=== PATIENT | male | born 1965 | race Two or more races ===

== ENCOUNTER 2020-06-07 15:24 | Emergency (ER) | payer OTHER, SELFPAY ==
--- NOTE | ~2020-06-07 | XR_ITS ---
EXAMINATION: XR CHEST CLINICAL INFORMATION: SOB COMPARISON: Chest 11/09/2019 TECHNIQUE: Frontal view of the chest was obtained. FINDINGS: The lungs are well-expanded and clear. The heart size and pulmonary vascularity is normal. No gross bony abnormality seen. XR/XR chest 1V IMPRESSION: Unremarkable chest examination.
--- NOTE | ~2020-06-07 | CT_ITS ---
EXAMINATION: CT ANGIOGRAM OF THE CHEST WITH AND WITHOUT CONTRAST (CT PULMONARY ANGIOGRAM FOR PE) CLINICAL INFORMATION: Reason for Exam covid + elevated d-dimer COMPARISON: None TECHNIQUE: Prior to contrast administration, noncontrast localization images were obtained. Subsequently, multidetector volumetric imaging was performed from the thoracic inlet to below the diaphragms following the administration of 80 mL Omnipaque 350 intravenous contrast. No contrast reaction reported Sagittal, coronal, and MIP oblique sagittal reformatted images were obtained on the CT workstation, uploaded to PACS, and reviewed. This CT examination was performed using dose optimization techniques as appropriate, variously including the following: *Automated exposure control *Adjustment of mA and/or kV according to patient size (this includes techniques or standardized protocols for targeted exams where dose is matched to indication/reason for exam; i.e. extremities or head) *Use of iterative reconstruction technique Total exam dose-length product 322 mGy-cm FINDINGS: QUALITY OF STUDY/CONTRAST BOLUS: Satisfactory. PULMONARY ARTERIES: No central or segmental pulmonary emboli. THORACIC AORTA: No aneurysm or dissection. LUNG: The lungs are well-expanded with patchy groundglass opacities seen throughout both lungs especially in right upper lobe, right middle lobe and both lower lobes suspicious for infiltrates. PLEURA: No pleural effusion or pneumothorax. MEDIASTINUM: Normal heart size. No pericardial effusion. No hilar or mediastinal lymphadenopathy. No evidence of septal bowing or right heart strain. CHEST WALL/AXILLA: No axillary or internal mammary lymphadenopathy. OSSEOUS STRUCTURES: No acute or suspicious osseous abnormality. UPPER ABDOMEN: Visualized liver and spleen appears unremarkable. No reflux of contrast into the hepatic veins to suggest elevated right heart pressures. CT/CT angio chest PE protocol IMPRESSION: No evidence of PE. No evidence aortic aneurysm. Scattered patchy groundglass opacities throughout both lungs suspicious for infiltrate likely COVID related. VTE: negative
[2020-06-07 15:32] VITALS: BP 144/59; PULSE 109; RESP 17; TEMP 36.9; O2SAT 98; BMI 29.9
--- NOTE | 2020-06-07 17:55 | ECG_ITS ---
Test Reason : COUGH Blood Pressure : / mmHG Vent. Rate : 102 BPM Atrial Rate : 102 BPM P-R Int : 156 ms QRS Dur : 084 ms QT Int : 316 ms P-R-T Axes : 038 057 068 degrees QTc Int : 411 ms Sinus tachycardia Minimal voltage criteria for LVH, may be normal variant Borderline ECG No previous ECGs available Referred By: Elaina Hsu Electronically Signed By:KERRY VELARDE MD
[2020-06-07 17:56] VITALS: BP 166/86; PULSE 100; RESP 20; TEMP 37.1; O2SAT 98
--- NOTE | 2020-06-07 18:18 | ED.SOB ---
HPI - SOB/Dyspnea General Chief Complaint: Dyspnea Stated Complaint: COVID + Time Seen by Provider: 06/07/20 17:20 Source: patient Mode of arrival: ambulatory History of Present Illness HPI Narrative: 54-year-old male With a past medical history of HTN, COVID-19 positive x 1 week, presenting to the ED complaining of worsening SOB, elevated heart rate, chest tightness/discomfort, generalized fatigue/weakness, decreased p.o. intake since COVID-19 diagnosis. Denies fever, chills, recent travel, LE edema, calf tenderness, abdominal pain, nausea/vomiting MD elicited complaint: shortness of breath and chest pain Related Data Previous Rx's Medication Instructions Recorded azithromycin See Rx Instructions .ROUTE 06/07/20 .COMPLEX #6 tab benzonatate [Tessalon Perles] 100 mg PO TID PRN #14 cap 06/07/20 Allergies Allergy/AdvReac Type Severity Reaction Status Date / Time No Known Allergies Allergy Unverified 11/24/19 18:24 [No Known Allergies*] Review of Systems Review of Systems: Constitutional: No Fever, No Chills, + Fatigue, + Malaise Cardiovascular: + Chest Pain, + SOB, + Dyspnea on Exertion, No Orthopnea, No Edema Respiratory: + Cough, No Sputum, No Wheezing Gastrointestinal: No Nausea, No Vomiting, No Diarrhea, No Constipation, No Abdominal pain Musculoskeletal: No joint pain, No Myalgias, No Joint Swelling Skin: No Skin Lesions, No rash Neuro: + Weakness, No Numbness, No Headache Yes all other systems are reviewed and are negative [facility] Past Medical History Attestation statement: The following information was validated with the patient. Medical History (Updated 06/07/20 @ 21:45 by ANGEL Kelsey) COVID-19 Hypertension Social History Social History Smoking Status: Never smoker Use of substances other than those prescribed or required for medical reasons: No Advance Directives: No Advance Directives Information Provided: Yes Physical Exam Vital Signs: Vital Signs: Last Vital Signs Temp 98.4 F 06/07/20 23:34 Pulse 112 H 06/07/20 23:34 Resp 20 06/07/20 23:34 BP 118/69 06/07/20 23:34 Pulse Ox 96 06/07/20 23:34 Body Mass Index 29.9 Const: General: cooperative and healthy appearing Orientation/consciousness: patient oriented x3 Limitations: no limitations HENMT: Head: Yes normal to inspection Ears: hearing grossly normal bilaterally General nose exam: Normal external nose present Face and sinus: Yes normal facial exam Eyes: General: appearance normal, both eyes and all related structures EOM: EOMs intact bilaterally Neck: Neck: Yes normal visual inspection Resp: Effort & Inspection: normal respiratory effort Auscultation: clear to auscultation bilaterally, no rales, no rhonchi and no wheezes Cardio: Rate: regular rate Heart sounds: S1 normal heart sound present and S2 normal heart sound present GI: Inspection: Yes normal to inspection Palpation (GI): Soft to palpation and nontender Skin: Rashes: no rashes Wounds: no wounds Neuro: General: patient oriented x3 Gait exam (Neuro): Normal gait present Extrem: General: Yes normal to inspection, Yes no pedal edema and Yes no calf tenderness Course Course Course Narrative: -190--leukopenia 4.2, D-dimer elevated to 382 >> will obtain CTA to rule out PE XR chest 1V IMPRESSION: Unremarkable chest examination -initil troponin 6.1 > will obtain 3 hour repeat -2140-- repeat troponin 5.1, RI unlikely CT angio chest PE protocol IMPRESSION: No evidence of PE. No evidence aortic aneurysm. Scattered patchy groundglass opacities throughout both lungs suspicious for infiltrate likely COVID related. VTE: negative >> patient given 1st dose of Azithromycin in the ED. repeat vital signs with increased heart rate/tachypnea > Motrin and IVF ordered. Will reassess and repeat. Patient maintain saturations greater than 97% on RA with exertion -0025-repeat vital signs improved with a heart rate of 112, patient requesting to be discharged. Results discussed with patient with human resources records clerk including worrisome signs and symptoms and strict return precautions. He verbalized understanding feel safe for discharge home MDM - SOB/Dyspnea MDM Narrative Medical decision making narrative: 54-year-old male With a past medical history of HTN, COVID-19 positive x 1 week, presenting to the ED complaining of worsening SOB, elevated heart rate, chest tightness/discomfort, generalized fatigue/weakness, decreased p.o. intake since COVID-19 diagnosis. On exam mildly tachycardic, NAD/nontoxic appearing, lungs CTA, no LE edema or calf tenderness. Concern for COVID-19 symptoms. Rule out PE vs COVID-19 pneumonia. Unlikely severe sepsis as known viral etiology Plan: EKG, labs, CXR, albuterol, reassess Lab Data Result diagrams: 06/07/20 18:28 06/07/20 18:28 Labs: Lab Results 06/07/20 06/07/20 06/07/20 Range/Units 18:28 18:28 18:28 WBC 4.2 L (4.8-10.8) X10*3/uL RBC 5.48 (4.60-5.80) X10*6/uL Hgb 16.1 (14.0-18.0) g/dl Hct 47.1 (42-52) % MCV 85.9 (80-98) fL MCH 29.4 (27.0-33.0) pg MCHC 34.2 (31.0-36.0) g/dl RDW 12.5 (11.0-16.0) % Plt Count 178 (160-400) X10*3/uL MPV 12.6 H (9.4-12.4) fL Immature Gran % (Auto) 0.2 (0.0-0.4) % Neut % (Auto) 65.8 (45-73) % Lymph % (Auto) 24.6 (20-40) % [place] % (Auto) 9.0 (2-11) % Eos % (Auto) 0.2 (0-4) % Baso % (Auto) 0.2 (0-2) % Lymph # (Auto) 1.0 L (1.2-4.9) X10*3/uL [place] # (Auto) 0.4 (0.1-1.2) X10*3/uL Eos # (Auto) 0.0 (0.0-0.4) X10*3/uL Baso # (Auto) 0.0 (0.0-0.2) X10*3/uL Abs Immat Gran (auto) 0.01 (0.00-0.03) X10*3/uL Absolute Neuts (auto) 2.8 (2.0-8.3) X10*3/uL Absolute Nucleated RBC 0.000 (0.0-0.012) X10*3/uL Nucleated RBC % (auto) 0.0 (0.0-0.2) /100WBC PT 12.8 (10.8-13.0) SEC INR 1.1 (0.9-1.1) APTT 33.5 (24.1-38.0) SEC D-Dimer 382 NG/ML Sodium 141 (135-145) mmol/L Potassium 4.0 (3.3-5.1) mmol/L Chloride 101 (96-108) mmol/L Carbon Dioxide 30 H (22-29) mmol/L Anion Gap 14 (12-20) BUN 8 L (9-16) mg/dL Creatinine 0.82 (0.5-1.4) mg/dL Estim Creat Clear Calc 110.5 Estimated GFR > 60 Random Glucose 103 (60-115) mg/dL Calcium 8.7 (8.4-10.2) mg/dL Troponin I High Sens (<3.5-35.0) ng/L B-Natriuretic Peptide (<100) pg/mL 06/07/20 06/07/20 Range/Units 18:28 20:05 WBC (4.8-10.8) X10*3/uL RBC (4.60-5.80) X10*6/uL Hgb (14.0-18.0) g/dl Hct (42-52) % MCV (80-98) fL MCH (27.0-33.0) pg MCHC (31.0-36.0) g/dl RDW (11.0-16.0) % Plt Count (160-400) X10*3/uL MPV (9.4-12.4) fL Immature Gran % (Auto) (0.0-0.4) % Neut % (Auto) (45-73) % Lymph % (Auto) (20-40) % [place] % (Auto) (2-11) % Eos % (Auto) (0-4) % Baso % (Auto) (0-2) % Lymph # (Auto) (1.2-4.9) X10*3/uL [place] # (Auto) (0.1-1.2) X10*3/uL Eos # (Auto) (0.0-0.4) X10*3/uL Baso # (Auto) (0.0-0.2) X10*3/uL Abs Immat Gran (auto) (0.00-0.03) X10*3/uL Absolute Neuts (auto) (2.0-8.3) X10*3/uL Absolute Nucleated RBC (0.0-0.012) X10*3/uL Nucleated RBC % (auto) (0.0-0.2) /100WBC PT (10.8-13.0) SEC INR (0.9-1.1) APTT (24.1-38.0) SEC D-Dimer NG/ML Sodium (135-145) mmol/L Potassium (3.3-5.1) mmol/L Chloride (96-108) mmol/L Carbon Dioxide (22-29) mmol/L Anion Gap (12-20) BUN (9-16) mg/dL Creatinine (0.5-1.4) mg/dL Estim Creat Clear Calc Estimated GFR Random Glucose (60-115) mg/dL Calcium (8.4-10.2) mg/dL Troponin I High Sens 6.1 5.1 (<3.5-35.0) ng/L B-Natriuretic Peptide < 10 (<100) pg/mL Discharge Plan Discharge Clinical Impression: Pneumonia due to COVID-19 virus Patient Disposition: Home, Self-Care Instructions: COVID-19 (Coronavirus Disease 2019) (ED) Additional Instructions: You have COVID pneumonia. A Zithromax in as an antibiotic, take as prescribed. Continue using previously prescribed inhaler at home. Call your doctor for follow-up. Take Tylenol Motrin for body aches/fever. If you develop constant worsening shortness of breath, chest pain, or fever unresolved with medications return to the ED Tiene neumon?a COVID. Un Zithromax carlo antibi?mars, t?saldivar seg?n lo prescrito. Contin?e usando el inhalador previamente recetado en casa. Llame a zhao m?dico para seguimiento. [place] Tylenol Motrin para los ness corporales / fiebre. Si presenta un empeoramiento joanne de la dificultad para respirar, dolor en el pecho o fiebre sin resolver con medicamentos, regrese al servicio de urgencias Prescriptions: New azithromycin 250 mg tablet See Rx Instructions .ROUTE .COMPLEX Qty: 6 RF: 0 benzonatate [Tessalon Perles] 100 mg capsule 100 mg PO TID PRN (Reason: cough) Qty: 14 RF: 0 Referrals: [facility] [Primary Care Provider] - 2 days Print Language: Ivorian
[2020-06-07 18:38] LABS: MANUAL DIFF FLAG NO
[2020-06-07 18:47] LABS: INTERNATIONAL NORM RATIO 1.1 (0.9-1.1); Prothrombin Time 12.8 SEC (10.8-13.0)
[2020-06-07 18:49] LABS: Basophils Percent Auto 0.2 % (0-2); Eosinophils Percent Auto 0.2 % (0-4); Hematocrit 47.1 % (42-52); Hemoglobin 16.1 g/dl (14.0-18.0); Imm Gran Abs Auto 0.01 X10*3/uL (0.00-0.03); Imm Gran Pct Auto 0.2 % (0.0-0.4); Lymphocytes Percent Auto 24.6 % (20-40); Mean Corpuscular HGB Conc 34.2 g/dl (31.0-36.0); Mean Corpuscular Hemoglobin 29.4 pg (27.0-33.0); Mean Corpuscular Volume 85.9 fL (80-98); Mean Platelet Volume 12.6 fL (9.4-12.4); Monocytes Absolute Auto 0.4 X10*3/uL (0.1-1.2); Neutrophils Absolute Auto 2.8 X10*3/uL (2.0-8.3); Neutrophils Percent Auto 65.8 % (45-73); Partial Thromboplastin Time 33.5 SEC (24.1-38.0); Platelet Count 178 X10*3/uL (160-400); Red Blood Count 5.48 X10*6/uL (4.60-5.80); Red Cell Distribution Width 12.5 % (11.0-16.0); White Blood Count 4.2 X10*3/uL (4.8-10.8)
[2020-06-07 18:50] LABS: D Dimer 382 NG/ML
[2020-06-07 19:09] LABS: Anion Gap 14 (12-20); Blood Urea Nitrogen 8 mg/dL (9-16); Calcium 8.7 mg/dL (8.4-10.2); Carbon Dioxide 30 mmol/L (22-29); Chloride 101 mmol/L (96-108); Creatinine Clr Calc Pharmacy 110.5; Estimated Glomerular Filt Rate > 60; Glucose Random 103 mg/dL (60-115); Sodium 141 mmol/L (135-145)
[2020-06-07 19:14] LABS: B Type Natriuretic Peptide < 10 pg/mL (<100); Troponin-I High Sensitivity 6.1 ng/L (<3.5-35.0)
[2020-06-07] MEDS: Albuterol Sulfate 90 MCG 8 GM INHALER 4 PUFF INHALE (19:57)
[2020-06-07 20:20] VITALS: BP 140/93; PULSE 105; RESP 24; TEMP 37.5; O2SAT 98
[2020-06-07 21:05] LABS: Troponin-I High Sensitivity 5.1 ng/L (<3.5-35.0)
[2020-06-07] MEDS: Acetaminophen 325 MG TABLET 650 MG PO (21:30)
[2020-06-07] MEDS: Azithromycin 500 MG TABLET PO (21:58)
[2020-06-07 22:03] VITALS: O2SAT 97
[2020-06-07 22:04] VITALS: BP 142/91; PULSE 130; RESP 28; TEMP 37.9; O2SAT 97
--- NOTE | 2020-06-07 22:06 | PC.NURSE ---
PT REQUESTING SOMETHING TO EAT, BROUGHT HIM SANDWICH AND SODA.
[2020-06-07] MEDS: Ibuprofen 400 MG TABLET PO (22:34)
[2020-06-07] MEDS: 0.9 % Sodium Chloride 1,000 ML 999 ML IVCONT (22:36)
[2020-06-07 23:34] VITALS: BP 118/69; PULSE 112; RESP 20; TEMP 36.9; O2SAT 96
== END 2020-06-08 00:42 | disposition home or self-care (01) ==
PROVIDERS: Physician Assistant; Emergency Provider Internal Medicine
DX: U07.1 COVID-19 (principal); J12.82 Pneumonia due to coronavirus disease 2019; I10 Essential (primary) hypertension
CPT/HCPCS: 36415; 71045; 71275; 80048; 83880; 84484; 85025; 85379; 85610; 85730; 93005; 96360; 99284; Q9967

== ENCOUNTER 2020-06-10 10:10 | Emergency (ER) | payer OTHER, SELFPAY ==
--- NOTE | ~2020-06-10 | XR_ITS ---
EXAMINATION: XR chest 1V CLINICAL INFORMATION: Shortness of breath COMPARISON: 06/07/2020 TECHNIQUE: XR chest 1V Tubes and lines: None Lungs and Sweetie: There are mild patchy interstitial opacities concerning for possible atypical pneumonia including possible viral pneumonia. Pleura: Normal. Costophrenic angles are sharp. No pneumothorax. Heart and mediastinum: The mediastinum is within normal limits.. Bones: Skeletal structures included are normal for patient's age. XR/XR chest 1V IMPRESSION: Mild interstitial groundglass opacities concerning for possible atypical pneumonia including viral pneumonia. Please correlate clinically. No pleural effusion.
[2020-06-10 10:55] VITALS: BP 136/80; PULSE 116; RESP 24; TEMP 36.9; O2SAT 96; BMI 29.6
--- NOTE | 2020-06-10 11:29 | ED.GENADULT ---
HPI - General Adult General Chief complaint: Dyspnea Stated complaint: SOB COVID POS Time Seen by Provider: 06/10/20 10:44 History of Present Illness HPI narrative: This is a 54 years old male presented to the emergency department with chief complaint of shortness of breath malaise weakness. He was seen in the emergency room June 07 he was then used with the COVID pneumonitis discharged home on azithromycin. He returned today because he is feeling weak, malaise poor p.o. intake Onset (ago): day(s) (4) Relieving factors: none Exacerbating factors: none Associated symptoms: denies other symptoms Related Data Previous Rx's Medication Instructions Recorded azithromycin See Rx Instructions .ROUTE 06/07/20 .COMPLEX #6 tab benzonatate [Tessalon Perles] 100 mg PO TID PRN #14 cap 06/07/20 Allergies Allergy/AdvReac Type Severity Reaction Status Date / Time No Known Allergies Allergy Unverified 11/24/19 18:24 [No Known Allergies*] Review of Systems Cardiovascular: Cardiovascular: Denies chest pain, Denies chest pain at rest, Denies chest pain with activity and Denies dyspnea Respiratory: Respiratory: Reports no additional respiratory complaints, Denies pain with cough and Denies dyspnea Gastrointestinal: Gastrointestinal: Denies abdominal pain, Denies belching, Denies melena, Denies bloating and Denies hematochezia Neurologic: Reports system reviewed and no additional complaints, except as documented PMFSH Past Medical History Medical History COVID-19 Hypertension Social History Social History Smoking Status: Never smoker Advance Directives: Yes Advance Directives Information Provided: Yes Advance Directives on File: No Physical Exam Vital Signs: Vital Signs: Last Vital Signs Temp 98.1 F 06/10/20 14:31 Pulse 92 06/10/20 14:58 Resp 18 06/10/20 14:58 BP 144/96 H 06/10/20 14:58 Pulse Ox 97 06/10/20 14:58 Body Mass Index 29.6 Const: Orientation/consciousness: oriented to person, oriented to place and oriented to time HENMT: Head: Yes normal to inspection, Yes No palpable skull fracture present and Yes normocephalic Eyes: General: appearance normal, both eyes and all related structures Neck: Neck: Yes normal visual inspection, Yes full ROM, Yes no lymphadenopathy and Yes no meningeal signs Chest: Chest palpation & inspection: normal inspection of the chest Resp: Effort & Inspection: able to speak in complete sentences Auscultation: clear to auscultation bilaterally GI: Inspection: Yes normal to inspection Palpation (GI): Soft to palpation, nontender and no guarding Skin: General skin exam: no rashes or lesions noted, elasticity normal, turgor normal and atrophy Neuro: General: oriented to person, oriented to place, oriented to time and no meningeal signs Course Course Course Narrative: Patient does have evidence of covid pneumonia by chest x-ray, but is maintaining his oxygen saturation more than 95 -96%, he is able to talk full sentences, he does not drop his O2 sat with ambulation, his initial tachycardia resolved his heart rate is now 96. He is afebrile.The Covid Home Safety (MD CALC ) is 40 points likely suitable for d/c . I discussed with the patient lungs exercise including incentive spirometry/proning position/he does have an O2 sat monitor at home. Patient is very comfortable with the plan and will return if his oxygen is less than 92% or if he is worse /any concern. All questions were answered again is very comfortable with the plan Medical Decision Making Lab Data Result diagrams: 06/10/20 11:32 06/10/20 11:32 Labs: Lab Results 06/10/20 06/10/20 Range/Units 11:32 11:32 WBC 5.9 (4.8-10.8) X10*3/uL RBC 4.93 (4.60-5.80) X10*6/uL Hgb 14.2 (14.0-18.0) g/dl Hct 42.0 (42-52) % MCV 85.2 (80-98) fL MCH 28.8 (27.0-33.0) pg MCHC 33.8 (31.0-36.0) g/dl RDW 12.4 (11.0-16.0) % Plt Count 209 (160-400) X10*3/uL MPV 11.7 (9.4-12.4) fL Immature Gran % (Auto) 0.2 (0.0-0.4) % Neut % (Auto) 77.7 H (45-73) % Lymph % (Auto) 14.6 L (20-40) % [place] % (Auto) 7.3 (2-11) % Eos % (Auto) 0.0 (0-4) % Baso % (Auto) 0.2 (0-2) % Lymph # (Auto) 0.9 L (1.2-4.9) X10*3/uL [place] # (Auto) 0.4 (0.1-1.2) X10*3/uL Eos # (Auto) 0.0 (0.0-0.4) X10*3/uL Baso # (Auto) 0.0 (0.0-0.2) X10*3/uL Abs Immat Gran (auto) 0.01 (0.00-0.03) X10*3/uL Absolute Neuts (auto) 4.6 (2.0-8.3) X10*3/uL Absolute Nucleated RBC 0.000 (0.0-0.012) X10*3/uL Nucleated RBC % (auto) 0.0 (0.0-0.2) /100WBC Sodium 139 (135-145) mmol/L Potassium 4.4 (3.3-5.1) mmol/L Chloride 103 (96-108) mmol/L Carbon Dioxide 26 (22-29) mmol/L Anion Gap 14 (12-20) BUN 12 (9-16) mg/dL Creatinine 0.81 (0.5-1.4) mg/dL Estim Creat Clear Calc 111.3 Estimated GFR > 60 Random Glucose 93 (60-115) mg/dL Calcium 8.4 (8.4-10.2) mg/dL Total Bilirubin 0.3 (0.0-1.0) mg/dL AST 32 (5-37) U/L ALT 33 (0-40) U/L Alkaline Phosphatase 77 (39-117) U/L Total Protein 7.3 (6.5-8.0) g/dL Albumin 3.9 (3.5-5.0) g/dL Imaging Data Chest x-ray: My impression: TECHNIQUE: XR chest 1V Tubes and lines: None Lungs and Sweetie: There are mild patchy interstitial opacities concerning for possible atypical pneumonia including possible viral pneumonia. Pleura: Normal. Costophrenic angles are sharp. No pneumothorax. Heart and mediastinum: The mediastinum is within normal limits.. Bones: Skeletal structures included are normal for patient's age. XR/XR chest 1V IMPRESSION: Mild interstitial groundglass opacities concerning for possible atypical pneumonia including viral pneumonia. Please correlate clinically. No pleural effusion. Discharge Plan Discharge Clinical Impression: Pneumonia due to COVID-19 virus Patient Disposition: Home, Self-Care Instructions: COVID-19 (Coronavirus Disease 2019) (ED) Additional Instructions: You were evaluated today for COVID pneumonia, your oxygen remain good more than 95 -96% you do need any oxygen supplementation at this time. You told me that you have an oximeter at home, keep checking you oximeter return to the emergency department if you worse if he vomiting if you are unable to keep fluids down if your oxygen drop below 91%. Do the pulmonary exercise that we discuss including Incentive spirometer. Return if you are worse. Also follow-up with primary care physician Prescriptions: No Action azithromycin 250 mg tablet See Rx Instructions .ROUTE .COMPLEX Qty: 6 RF: 0 benzonatate [Tessalon Perles] 100 mg capsule 100 mg PO TID PRN (Reason: cough) Qty: 14 RF: 0 Interventions: ED Discharge Assessment Last Done: 06/10/20 14:59 Discharge Date/Time: 06/10/20 15:20
[2020-06-10 11:37] LABS: MANUAL DIFF FLAG NO
[2020-06-10] MEDS: Ketorolac Tromethamine 15 MG/ML VIAL IV (11:37)
[2020-06-10] MEDS: 0.9 % Sodium Chloride 1,000 ML 999 ML IVCONT (11:37)
[2020-06-10 11:38] LABS: Basophils Percent Auto 0.2 % (0-2); Hemoglobin 14.2 g/dl (14.0-18.0); Imm Gran Abs Auto 0.01 X10*3/uL (0.00-0.03); Imm Gran Pct Auto 0.2 % (0.0-0.4); Lymphocytes Absolute Auto 0.9 X10*3/uL (1.2-4.9); Lymphocytes Percent Auto 14.6 % (20-40); Mean Corpuscular HGB Conc 33.8 g/dl (31.0-36.0); Mean Corpuscular Hemoglobin 28.8 pg (27.0-33.0); Mean Corpuscular Volume 85.2 fL (80-98); Mean Platelet Volume 11.7 fL (9.4-12.4); Monocytes Absolute Auto 0.4 X10*3/uL (0.1-1.2); Monocytes Percent Auto 7.3 % (2-11); Neutrophils Absolute Auto 4.6 X10*3/uL (2.0-8.3); Neutrophils Percent Auto 77.7 % (45-73); Platelet Count 209 X10*3/uL (160-400); Red Blood Count 4.93 X10*6/uL (4.60-5.80); Red Cell Distribution Width 12.4 % (11.0-16.0); White Blood Count 5.9 X10*3/uL (4.8-10.8)
[2020-06-10 11:50] VITALS: PULSE 96; RESP 22; O2SAT 95
[2020-06-10 12:03] LABS: Alanine Aminotransferase 33 U/L (0-40); Albumin Level 3.9 g/dL (3.5-5.0); Alkaline Phosphatase 77 U/L (39-117); Anion Gap 14 (12-20); Aspartate Amino Transferase 32 U/L (5-37); Bilirubin Total 0.3 mg/dL (0.0-1.0); Blood Urea Nitrogen 12 mg/dL (9-16); Calcium 8.4 mg/dL (8.4-10.2); Carbon Dioxide 26 mmol/L (22-29); Chloride 103 mmol/L (96-108); Creatinine Clr Calc Pharmacy 111.3; Estimated Glomerular Filt Rate > 60; Glucose Random 93 mg/dL (60-115); Potassium 4.4 mmol/L (3.3-5.1); Sodium 139 mmol/L (135-145); Total Protein 7.3 g/dL (6.5-8.0)
--- NOTE | 2020-06-10 13:06 | PC.NURSE ---
patient able to ambulate 150 feet, pulse oximetry went to 95%. patient able to speak in clear sentences. HR went up to 107 BPM.
[2020-06-10 14:31] VITALS: BP 135/84; PULSE 100; RESP 19; TEMP 36.7; O2SAT 99
[2020-06-10 14:58] VITALS: BP 144/96; PULSE 92; RESP 18; O2SAT 97
== END 2020-06-10 15:20 | disposition home or self-care (01) ==
PROVIDERS: Emergency Provider Emergency Medicine
DX: U07.1 COVID-19 (principal); J12.82 Pneumonia due to coronavirus disease 2019; R06.02 Shortness of breath; Z79.899 Other long term (current) drug therapy
CPT/HCPCS: 36415; 71045; 80053; 85025; 96365; 96375; 99283; 99284; J1885

== ENCOUNTER → 2020-06-27 10:53 | Outpatient (BNVA) | payer OTHER, SELFPAY | PROVIDERS: PCP Family Medicine; Visit Provider Internal Medicine | DX: U07.1 COVID-19 (principal); J12.82 Pneumonia due to coronavirus disease 2019; G47.33 Obstructive sleep apnea (adult) (pediatric) | CPT/HCPCS: 99212 ==

== ENCOUNTER 2020-09-27 14:45 | Outpatient (REF) | payer OTHER, SELFPAY ==
--- NOTE | ~2020-09-27 | XR_ITS ---
EXAMINATION: XR CHEST CLINICAL INFORMATION: Covid 19. COMPARISON: Chest 06/10/2020 TECHNIQUE: 2 views of the chest were obtained. FINDINGS: The lungs are well-expanded and clear. The heart size and pulmonary vascularity is normal. No gross bony abnormality seen. XR/XR chest 2V IMPRESSION: Unremarkable chest exam. No change from 06/10/2020
== END 2020-09-27 14:46 | disposition home or self-care (01) ==
LOC: HO.XRAY 14:45
PROVIDERS: PCP Family Medicine; Visit Provider Internal Medicine
DX: B94.8 Sequelae of other specified infectious and parasitic diseases (principal); R06.00 Dyspnea, unspecified; G47.33 Obstructive sleep apnea (adult) (pediatric); J12.82 Pneumonia due to coronavirus disease 2019
CPT/HCPCS: 71046; 99212

== ENCOUNTER 2020-10-23 07:51 | Outpatient (REF) | payer OTHER, SELFPAY ==
--- NOTE | 2020-10-23 17:17 | PFT_ITS ---
INDICATION: Dyspnea. SPIROMETRY: The FEV1 to FVC of 85% with an FEV1 of 2.9 L, 82% predicted, FVC 3.42 L or 76% predicted. No significant response to bronchodilators noted. Maximum voluntary ventilation 96% predicted. LUNG VOLUMES: Total lung capacity 69% predicted with an expiratory reserve volume of 32% predicted. DIFFUSING CAPACITY: DLCO 82% predicted. COMPARISON: PFTs in 2019. INTERPRETATION: No obstructive ventilatory defect. No significant response to bronchodilators noted. Normal maximum voluntary ventilation. However, the patient does have a mild restrictive ventilatory defect, which could be secondary to interstitial lung conditions versus neuromuscular conditions. The patient also has an increase elevated BMI that is likely reducing his ability to maintain an adequate expiratory reserve volume. Diffusion capacity is within normal limits. When compared to 2019, there is a significant decrease in the FVC, significant decrease in the FEV1, trend increase in the total lung capacity, and a trend decrease in the diffusion capacity. Clinical correlation warranted. MD MARIA INES Schmidt/MODL / [id number]
== END 2020-10-23 07:52 | disposition home or self-care (01) ==
LOC: HO.RESP 07:51
PROVIDERS: Visit Provider Internal Medicine
DX: B94.8 Sequelae of other specified infectious and parasitic diseases (principal); R06.00 Dyspnea, unspecified
CPT/HCPCS: 94060; 94727; 94729

== ENCOUNTER → 2020-10-30 15:26 | Outpatient (BNVA) | payer OTHER, SELFPAY | PROVIDERS: Visit Provider Internal Medicine | DX: G47.33 Obstructive sleep apnea (adult) (pediatric) (principal); R06.00 Dyspnea, unspecified; B94.8 Sequelae of other specified infectious and parasitic diseases | CPT/HCPCS: 99212 ==

== ENCOUNTER 2021-04-26 07:58 | Outpatient (REF) | payer OTHER, SELFPAY ==
--- NOTE | ~2021-04-26 | XR_ITS ---
EXAMINATION: XR HAND, LEFT CLINICAL INFORMATION: Pain left fingers. COMPARISON: April 06, 2017 TECHNIQUE: PA, lateral, and oblique views of the left hand. FINDINGS: There is no evidence of acute fracture or dislocation of the left hand. No significant soft tissue swelling identified. There is degenerative spurring seen involving the first interphalangeal joint which is similar to previous study. There is minimal spurring about the distal interphalangeal joints without loss of joint space. XR/XR hand LT min 3V IMPRESSION: Mild degenerative change of the left hand without significant change from previous study of April 06, 2017.
== END 2021-04-26 07:59 | disposition home or self-care (01) ==
LOC: HO.XRAY 07:58
PROVIDERS: PCP Family Medicine; Visit Provider Family Medicine
DX: M79.645 Pain in left finger(s) (principal)
CPT/HCPCS: 73130

== ENCOUNTER → 2021-05-29 13:47 | Outpatient (BNVA) | payer OTHER, SELFPAY | PROVIDERS: PCP Family Medicine; Visit Provider Physician Assistant | DX: M65.312 Trigger thumb, left thumb (principal) | CPT/HCPCS: 20550; 99202; J1100 ==

== ENCOUNTER 2022-08-22 09:19 | Outpatient (REF) | payer OTHER, SELFPAY ==
--- NOTE | ~2022-08-22 | XR_ITS ---
EXAMINATION: XR CHEST CLINICAL INFORMATION: SOB x3 months COMPARISON: None available. TECHNIQUE: 2 views of the chest were obtained. FINDINGS: No significant abnormality is noted involving the heart, lungs, mediastinum, bony thorax or soft tissues. XR/XR chest 2V IMPRESSION: Unremarkable chest examination.
== END 2022-08-22 09:20 | disposition home or self-care (01) ==
LOC: HO.HHCX 09:19
PROVIDERS: Visit Provider Emergency Medicine
DX: R06.02 Shortness of breath (principal)
CPT/HCPCS: 71046

== ENCOUNTER 2022-10-07 08:10 | Outpatient (REF) | payer OTHER, SELFPAY ==
[2022-10-07 11:16] LABS: MANUAL DIFF FLAG NO
[2022-10-07 11:42] LABS: Basophils Absolute Auto 0.1 X10*3/uL (0.0-0.2); Basophils Percent Auto 1.1 % (0-2); Eosinophils Absolute Auto 0.3 X10*3/uL (0.0-0.4); Eosinophils Percent Auto 4.8 % (0-4); Hematocrit 44.9 % (42.0-52.0); Hemoglobin 15.2 g/dl (14.0-18.0); Imm Gran Abs Auto 0.02 X10*3/uL (0.00-0.03); Imm Gran Pct Auto 0.4 % (0.0-0.4); Lymphocytes Absolute Auto 1.7 X10*3/uL (1.2-4.9); Lymphocytes Percent Auto 31.1 % (20-40); Mean Corpuscular HGB Conc 33.9 g/dl (31.0-36.0); Mean Corpuscular Hemoglobin 29.2 pg (27.0-33.0); Mean Corpuscular Volume 86.3 fL (80.0-98.0); Mean Platelet Volume 12.1 fL (9.4-12.4); Monocytes Absolute Auto 0.6 X10*3/uL (0.1-1.2); Monocytes Percent Auto 10.2 % (2-11); Neutrophils Absolute Auto 2.8 x10*3/uL (2.0-8.3); Neutrophils Percent Auto 52.4 % (45-73); Platelet Count 228 X10*3/uL (160-400); Red Cell Distribution Width 12.6 % (11.0-16.0); White Blood Count 5.4 X10*3/uL (4.8-10.8)
[2022-10-07 11:50] LABS: Estimated Average Glucose 103 mg/dL; Hemoglobin A1c % 5.2 %
[2022-10-07 11:57] LABS: Appearance Urine Clear; Color Urine Yellow; Glucose Urine UA Negative (Negative); Leukocyte Esterase Urine Negative (Negative); Nitrite Urine Negative (Negative); PH 6.5 (5.0-9.0); Specific Gravity - Urine 1.015 (1.005-1.025); Urine Blood Negative (Negative); Urine Ketones Negative (Negative); Urine Protein Negative (Neg-Trace)
[2022-10-07 12:05] LABS: Bacteria Urine None Seen (None Seen); Hyaline Casts Urine 0-2 /LPF (0-2); RBC Urine 0-2 /HPF (0-2); Squamous Epithelial Cell Urine 0-2 /HPF (0-2); WBC Urine 0-5 /HPF (0-5)
[2022-10-07 12:26] LABS: Alanine Aminotransferase 31 U/L (0-40); Albumin Level 4.1 g/dL (3.5-5.0); Alkaline Phosphatase 84 U/L (39-117); Anion Gap 16 (12-20); Aspartate Amino Transferase 18 U/L (5-37); Bilirubin Total 0.5 mg/dL (0.0-1.0); Blood Urea Nitrogen 13 mg/dL (9-16); Calcium 9.5 mg/dL (8.4-10.2); Carbon Dioxide 26 mmol/L (22-29); Chloride 105 mmol/L (96-108); Cholesterol 189 mg/dL; Estimated Glomerular Filt Rate > 60; Glucose Random 104 mg/dL (60-115); HDL Cholesterol 37 mg/dL; LDL Cholesterol Calculated 104 mg/dl; Potassium 4.5 mmol/L (3.3-5.1); Sodium 142 mmol/L (135-145); Total Protein 7.7 g/dL (6.5-8.0); Triglycerides 244 mg/dL
[2022-10-07 12:30] LABS: TSH reflex Free T4 2.69 uIU/mL (0.32-4.0)
== END 2022-10-07 08:11 | disposition home or self-care (01) ==
LOC: HO.HHCL 08:10
PROVIDERS: Visit Provider Family Medicine
DX: R53.83 Other fatigue (principal)
CPT/HCPCS: 36415; 80053; 80061; 81001; 83036; 84443; 85025

== ENCOUNTER 2022-11-27 14:26 | Outpatient (AMB) | payer OTHER, SELFPAY ==
[2022-11-27 14:28] VITALS: BP 130/80; PULSE 88; O2SAT 98; BMI 30.4
--- NOTE | 2022-11-27 14:28 | A.OFFVIS_ITS ---
Intake Vital Signs 11/27/22 14:28 Height 5 ft 8 in Weight 200 lb BMI 30.4 BP 130/80 Blood Pressure Location Lt brachial Position Sitting Pulse 88 Pulse Source Pulse Oximeter Pulse Oximetry (%) 98 Oxygen Delivery Method Room Air Intake Visit Reasons: copd/jana Intake Note: pt is here back again since 2020 and states he is pcp sent him back for diffic ulty breathing. That he feels is getting worse. pt states that he feels it even sitting with us now. Up and down since last visit. Software Development Project Manager Required: Yes Software Development Project Manager Name: alo Allergies No Known Allergies [No Known Allergies*] Allergy (Verified 11/27/22 14:39) Medication List - Last Reconciled 11/27/22 by Segundo Dweitt MD acetaminophen mg PO Q6-8H PRN albuterol sulfate 90 mcg/actuation 2 puffs inhalation Q6H PRN aspirin 81 mg PO DAILY doxylamine succinate (Unisom (doxylamine)) 25 mg PO BEDTIME PRN multivitamin (Daily Multi-Vitamin tablet) 1 tab PO DAILY Do you need a note to return to daycare/school/sports/work: No HPI copd/jana HPI Details This 57 years old Georgian speaking, pleasant gentleman, is referred for pulmonary evaluation because of his main complaint of feeling short of breath. His shortness of breath is mainly subjective, and not necessarily related to any exertion. While sitting in the office and busy in talking, he was noticed to be comfortable without any obvious dyspnea, but he still complained that he is feeling short of breath. A few months ago he was started on CPAP therapy for a mild case of obstructive sleep apnea( sleep study done at [facility] ) He claims that his breathing is okay while he is using the CPAP, when he takes the mask off in the morning, he starts feeling more short of breath. He has no wheezing, or cough. He does have albuterol on hand has used it p.r.n. without much improvement. PFT. This gentleman had a complete pulmonary function test here at our office on 10/23/2020, which did not show any obstructive airway disorder are any positive response to BD therapy However his TLC and residual volume were moderately decreased, suggesting restrictive pulmonary disorder. Hafsa suspect actively he has really no reason for restrictive pattern, it could be just due to poor . Technique He had a chest x-ray on 08/22/2022, here at [facility] and it was essentially normal. I walked with him in the hallway for 4-5 minutes at a relatively fast pace, he walked good without any shortness of breath. And O2 sat at rest as well as during walking remained 97%. His heart rate did go up to 136 per minute. Patient tells me that he has been evaluated for by the heart specialists and they told him that the heart was normal. 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 Review of Systems Const All systems reviewed & are unremarkable except as noted in HPI and below Reports no additional complaints Eyes Reports no additional complaints ENT Reports no additional complaints Card Denies chest pain, Denies irregular heart rhythm and Denies leg edema Resp Reports cough (MINIMAL,OCCASIONAL ) GI Reports no additional complaints Musc Reports no additional complaints Neuro Reports no additional complaints Physical Exam Vital Signs: Last Vital Signs Pulse 88 11/27/22 14:28 BP 130/80 11/27/22 14:28 Pulse Ox 98 11/27/22 14:28 Oxygen Delivery Method Room Air 11/27/22 14:28 BMI result Body Mass Index 30.4 Const General: healthy appearing, comfortable, no acute distress, alert and awake Orientation/consciousness: patient oriented x3 HEENT Head: Yes normal to inspection General nose exam: No nasal polyps present and No nasal discharge present Face and sinus: Yes sinuses nontender Mouth: oropharynx normal Throat: Yes posterior oropharynx normal Eyes General: appearance normal, both eyes and all related structures Neck Neck: Yes normal visual inspection, Yes no lymphadenopathy, Yes trachea midline and Yes no JVD Thyroid: Thyroid normal Chest Chest palpation & inspection: normal inspection of the chest, normal palpation of entire chest wall and no tenderness Resp Effort & Inspection: normal respiratory effort Auscultation: clear to auscultation bilaterally, no crackles and no wheezes Cardio Palpation: normal PMI Rate: regular rate Rhythm: regular rhythm Heart sounds: no gallops and no murmurs Peripheral pulses: Peripheral pulses 2+ throughout GI Palpation (GI): Soft to palpation, nontender, No hepatosplenomegaly present and no masses Auscultation: normal bowel sounds Back/Spine/Pelvis Thoracic/Lumbar Spine: thoracic and lumbar spine normal to inspection Skin General skin exam: no rashes or lesions noted Neuro General: patient oriented x3 and no focal motor deficits Cranial nerves: Yes CN's II-XII intact bilaterally Extrem General: Yes normal to inspection, Yes no clubbing, cyanosis or edema and Yes no calf tenderness Psych Appearance: grossly normal and well kempt Speech and movement: Normal speech and movement present Results Reviewed Results Reviewed: SPIROMETRY PERFORMED IN THE OFFICE: FVC 79% WHICH IS BORDERLINE DECREASED. NO OTHER ABNORMALITY NOTED. THERE IS NO EVIDENCE OF OBSTRUCTIVE AIRWAY DISORDER * I WALKED WITH HIM FOR 4 MINUTES IN THE HALLWAY AT A RELATIVELY FAST PACE. THERE WAS NO OBVIOUS SHORTNESS OF BREATH, O2 SAT REMAINED 97%. HEART RATE INCREASED TO 136 PER MINUTE, SETTLED DOWN TO 100 WITHIN 2 MINUTES. Assessment & Plan Assessment & Plan (1) Dyspnea on exertion: Comment: DYSPNEA ON EXERTION , MAINLY SUBJECTIVE, HE MAY BE SOMEWHAT D CONDITIONED. DOES NOT HAVE ANY OBSTRUCTIVE AIRWAY DISORDER. CHEST X-RAY WAS NORMAL, DOES NOT HAVE EXERCISE INDUCED HYPOXEMIA. I THINK HIS SYMPTOM IS FUNCTIONAL. HE NEEDS GOOD REASSURANCE AND EDUCATION, WHICH WAS PROVIDED. I GAVE HIM INCENTIVE SPIROMETRY DEVICE FROM THE OFFICE AND INSTRUCTED HIM TO DO DEEP BREATHING EXERCISES EVERY COUPLE HOURS WHILE AWAKE. HE DOES HAVE VERY GOOD INSPIRATORY EFFORT. DISCUSSED WITH HIM THE SPIROMETRY FINDINGS AND HE FEELS VERY REASSURED. ADVISED HIM TO COME BACK TO SEE ME ONLY NEEDED. Code(s): R06.00 - Dyspnea, unspecified (2) JANA (obstructive sleep apnea): Comment: As per previous visit to me in October 2020, he had only mild obstructive sleep apnea mostly positional, and had been instructed to sleep in lateral position and lose some weight. Apparently his symptoms continued so he had a sleep study at [facility] on 10/23/2021, which again showed only mild 0 JANA with total sleep time AHI 12 per minute. He has been started on CPAP therapy, claims that he feels better and his breathing also feels better at night. He is being followed up sleep medicine service, and does not have to come back to see me for this issue . Code(s): G47.33 - Obstructive sleep apnea (adult) (pediatric) Coding Level of Care Code Est Pt Level 4 (07288) Diagnoses Dyspnea on exertion R06.00 JANA (obstructive sleep apnea) G47.33
== END 2022-11-27 15:22 | disposition home or self-care (01) ==
PROVIDERS: PCP Family Medicine; Visit Provider Internal Medicine
DX: R06.00 Dyspnea, unspecified (principal); G47.33 Obstructive sleep apnea (adult) (pediatric)
CPT/HCPCS: 99214

== ENCOUNTER → 2022-11-27 14:26 | Outpatient (BNVA) | payer OTHER, SELFPAY | PROVIDERS: PCP Family Medicine; Visit Provider Internal Medicine | DX: R06.00 Dyspnea, unspecified (principal); G47.33 Obstructive sleep apnea (adult) (pediatric) | CPT/HCPCS: 99212 ==

== ENCOUNTER 2023-02-03 18:17 | Outpatient (REF) | payer OTHER, SELFPAY | END 2023-02-03 18:18 | disposition home or self-care (01) | LOC: HO.HHCLNP 18:17 | PROVIDERS: Visit Provider Family Medicine | DX: B37.2 Candidiasis of skin and nail (principal) | CPT/HCPCS: 87101; 87220 ==

== ENCOUNTER 2024-02-16 06:30 | Outpatient (REF) | payer OTHER, SELFPAY ==
[2024-02-16 07:55] LABS: Alanine Aminotransferase 24 U/L (0-40); Alkaline Phosphatase 58 U/L (39-117); Anion Gap 9 (12-20); Aspartate Amino Transferase 19 U/L (5-37); Bilirubin Direct 0.2 mg/dL (0.0-0.5); Bilirubin Total 0.7 mg/dL (0.0-1.0); Blood Urea Nitrogen 12 mg/dL (9-16); Carbon Dioxide 28 mmol/L (22-29); Chloride 107 mmol/L (96-108); Cholesterol 138 mg/dL (<200); Estimated Glomerular Filt Rate > 60; Glucose Random 102 mg/dL (60-115); HDL Cholesterol 34 mg/dL (>40); LDL Cholesterol Calculated 73 mg/dL (<100); Potassium 3.8 mmol/L (3.3-5.1); Sodium 140 mmol/L (135-145); Total Protein 7.2 g/dL (6.5-8.0); Triglycerides 155 mg/dL (<150)
== END 2024-02-16 06:31 | disposition home or self-care (01) ==
LOC: HO.LAB 06:30
PROVIDERS: PCP Family Medicine; Visit Provider Family Medicine
DX: I10 Essential (primary) hypertension (principal); E78.5 Hyperlipidemia, unspecified
CPT/HCPCS: 36415; 80048; 80061; 80076

== ENCOUNTER 2024-04-26 15:14 | Outpatient (AMB) | payer OTHER, SELFPAY ==
--- NOTE | 2024-04-26 15:36 | MHC.OFFVIS ---
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 Left RF Intake Note: Arnaldo is a 58 year old right hand dominant male who presents today as a new patient for evaluation of left ring finger pain and stiffness. He was seen by his PCP and was referred to orthopedics. Patient reports pain at his 4th MCP, and locking and catching at his PIP for about 2-3 month. No numbness or tingling. Denies injury. No previous tx. Insurance Collector Required: Yes Insurance Collector Services: Insurance Collector Present Insurance Collector Name: Arnaldo ID#[id number] Allergies No Known Allergies [No Known Allergies*] Allergy (Verified 04/26/24 15:44) HPI HPI MANAGER PROGRAMMING-Finger stiffness/pain, left. Left RF: Details: Arnaldo is a 58 year old right hand dominant male who presents today as a new patient for evaluation of left ring finger pain and stiffness. He was seen by his PCP and was referred to orthopedics. Patient reports pain at his 4th MCP, and locking and catching at his PIP for about 2-3 month. No numbness or tingling. Denies injury. No previous tx. 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 Neuro: Normal sensation of the tips of all digits of the left hand at this time Vascular: Cap refill brisk Pain: Tenderness to palpation over the A1 brianne of the left ring finger No other tenderness to palpation No pain with range of motion ROM: There is no visible and palpable locking and catching of the left ring finger in the office today Skin: No lacerations or abrasions. General: No ecchymosis, erythema, or evidence of infection. Psych: Appears grossly normal Affect normal Attitude cooperative Office Procedures Joint Inj/Aspir; Non-Pain Clin Joint Injection/Drain Prep: site was prepped using aseptic technique and injection warnings given Procedure: The patient tolerated the procedure well and but had some pain with the injection Trigger Finger Trigger Finger Ring Joint Injection: Left Ring Coding Procedure code (CPT) selection complete Assessment & Plan Assessment & Plan (1) Trigger finger, left ring finger: Code(s): M65.342 - Trigger finger, left ring finger Category: Medical Plan 1. Trigger finger, left ring finger Patient is educated about this condition Patient is educated about the treatment options available Patient would like to proceed with steroid injection The risks and benefits of a steroid injection including but not limited to risk of damage to blood vessels, nerves, tendons, infection, skin bleaching, failure to improve symptoms, increased pain, and possible need for further injections or other intervention were discussed with the patient and the patient wishes to proceed with the steroid injection. Once consent was obtained, I sterilely prepped the area over the A1 brianne of the flexor tendon sheath of the left ring finger. I then injected the flexor tendon sheath with a combination of 1 mL of dexamethasone (4mg/ml), and 1% lidocaine. The patient tolerated the procedure well with no complications. If the patient continues to have locking and catching 4-6 weeks following this injection, they may call to schedule appointment to discuss alternative treatment options Follow-up prn Coding Level of Care Code Est Pt Level 3 (14212) Diagnoses Trigger finger, left ring finger M65.342 CPT Codes Trigger Finger ([id number])
[2024-04-26 15:45] VITALS: BMI 29.6
--- OUTSIDE RECORDS SUMMARY | 2024-04-26 16:08 | XMS_ITS | Clinical Summary ---
Author Organization [employer] Address [address] [facility] 7[address] [place] [address] Care Team Providers Care [facility] Worker Name Role Phone Alysa Blair MD Primary Care Provider [phone] Shay Méndez PharmD Unavailable [phone] Allergies No known active allergies Medications albuterol 108 (90 Base) MCG/ACT inhaler Inhale 2 puffs every 4 (four) hours if needed for wheezing or shortness of breath. 18 g 1 08/23/19 23 Active Spacer/Aero-Holdi ng Chambers (OptiChamber Agnes) misc 1 each every 4 (four) hours if needed (asthma). 1 each 08/23/19 23 Active ketoconazole (NIZOral) 2 % cream Apply topically in the morning. 30 g 3 10/07/19 23 Active tamsulosin (Flomax) 0.4 MG 24 hr capsule Take 0.4 mg by mouth at bedtime. 09/18/19 23 Active ciclopirox (Penlac) 8 % solution Apply to affected toenails every night. 6 mL 3 02/04/20 23 Active atorvastatin (Lipitor) 10 MG tabletIndications :Hyperlipidemia, unspecified hyperlipidemia type TAKE 1 TABLET(10 MG) BY MOUTH IN THE MORNING 30 tablet 11 08/11/19 24 Active losartan-hydroCHL OROthiazide (Hyzaar) 100-12.5 MG tabletIndications :Hypertension, unspecified type Take 1 tablet by mouth Once per day. 90 tablet 1 02/12/20 24 Active diclofenac (Cataflam) 50 MG tablet Take 1 tablet (50 mg) by mouth every 8 (eight) hours if needed (pain). 90 tablet 1 01/212025 Active diclofenac (Cataflam) 50 MG tablet Take 1 tablet (50 mg) by mouth every 8 (eight) hours if needed (pain). 90 tablet 1 03/29/192024 Discontinued(R eorder (will not trigger notification to Pharmacy)) Active Problems Problem Noted Date Diagnosed Date Finger stiffness, left 04/02/2024 Finger pain, left 04/02/2024 Assessment & Plan (04/02/2024 7:00 PM EST): - diclofenac prn Back pain 04/02/2024 Assessment & Plan (04/02/2024 7:01 PM EST): - back execise - judicious use of diclofenac Cardiovascular risk factor 04/02/2024 Assessment & Plan (04/02/2024 7:06 PM EST): - evaluated by [facility] load builder, last seen in September 2023 - normal nuclear stress test in 2018 and echo in 2021 - given reassurance that patient does not have CAD - continue working on lifestyle modifications - 10-year ASCVD risk is > 10%. - Consider intensifying statin and discuss about aspirin. - Consider coronary calcium score Onychomycosis 02/03/2023 Assessment & Plan (07/21/2023 4:57 PM EDT): - prescribed terbinafine PO, but pt was unable to get it - s/p ciclopirox treatment, patient reports some improvement but not complete resolution - 02/03/23 fungal culture grew 3 different fungal species - dicussed about terbinafine PO, however agreed to complete evaluation for chest pain since he has to hold statin while taking terbinafine Assessment & Plan (02/20/2023 11:54 AM EST): - prescribed terbinafine PO, but pt was unable to get it - will prescribe ciclopirox for now - obtained nail specimen today to send for fungal culture - once it the culture result becomes available, will prescribe terbinafine PO History of COVID-19 10/13/2022 Assessment & Plan (10/13/2022 6:49 AM EDT): - Dx 06/01/20 - treated with supportive care - pneumonia in June 2020, treated with azithromycin - evaluated by coil assembler in 2020 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 - will refer back to coil assembler JANA (obstructive sleep apnea) 10/06/2022 Assessment & Plan (03/29/2024 4:48 PM EST): - following with sleep medicine clinic - continue Auto-PAP 6-16 cm H2O Assessment & Plan (02/20/2023 11:50 AM EST): - following with sleep medicine clinic - continue Auto-PAP 6-16 cm H2O Assessment & Plan (10/13/2022 6:38 AM EDT): - following with sleep medicine clinic - continue Auto-PAP 6-16 cm H2O 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 Pain in the coccyx 02/11/2018 Allergic rhinitis 10/12/2014 Hyperlipidemia 05/11/2012 Assessment & Plan (04/02/2024 7:00 PM EST): - last lipid profile in Feb 2024 - current medication: Atorvastatin 10 mg at bedtime, consider intensifying - continue working on lifestyle modifications Assessment & Plan (07/21/2023 4:18 PM EDT): - 10/07/22 TC 189; TG 244; HDL 37; LDL 104 - current medication: Atorvastatin 10 mg at bedtime - continue working on lifestyle modifications - If pt is going to start itraconazole for onychomycosis, will hold atorvastatin Assessment & Plan (02/20/2023 11:57 AM EST): - 10/07/22 TC 189; TG 244; HDL 37; LDL 104 - current medication: Atorvastatin 10 mg at bedtime - continue working on lifestyle modifications - If pt is going to start itraconazole for onychomycosis, will hold atorvastatin Assessment & Plan (10/13/2022 6:44 AM EDT): - not on any statin at this time - moderate intensity statin therapy is recommended per guidelien - will likely to start after completion of terbinafine for onychomycosis - continue working on lifestyle modifications Impaired fasting glucose 11/20/2011 Assessment & Plan (03/29/2024 4:49 PM EST): - Family Hx DM2 - annual screening - A1C 5.4% - lifestyle modifications Assessment & Plan (07/21/2023 4:18 PM EDT): - Family Hx DM2 - annual screening - A1C 5.4% - lifestyle modifications Assessment & Plan (02/20/2023 11:55 AM EST): - Family Hx DM2 - annual screening - A1C 5.4% - lifestyle modifications Assessment & Plan (10/13/2022 6:42 AM EDT): - Family Hx DM2 - annual screening - lifestyle modifications Hypertension 11/18/2011 Assessment & Plan (04/02/2024 6:58 PM EST): - Goal BP <140/90 per JNC-8, < 130/80 per ACC/AHA gudieline - BP elevated today - Co-managed by our pharmacist, Shay Méndez, last seen in Feb 2024 - Continue working on lifestyle modifications. - Continue checking BP at home - Continue losartan - hctz 100 - 12.5 mg daily - Continue Auto-PAP - follow-up in 3 months or sooner prn Assessment & Plan (07/21/2023 4:54 PM EDT): - Goal BP <140/90 per JNC-8, < 130/80 per ACC/AHA gudieline - BP elevated today - Co-managed by our pharmacist, Shay Méndez, ast seen on 01/21/23 - Continue working on lifestyle modifications. - Continue checking BP at home - Continue losartan 100 mg daily, consider switching to another ARB - Continue Auto-PAP - follow-up in 3 months or sooner prn Assessment & Plan (02/20/2023 11:53 AM EST): - Goal BP <140/90 per JNC-8, < 130/80 per ACC/AHA gudieline - BP slightly elevated today - Co-managed by our pharmacist, Shay Méndez ast seen on 01/21/23 - Continue working on lifestyle modifications. - Continue checking BP at home - Continue losartan 100 mg daily - Continue Auto-PAP - follow-up in 3 months or sooner prn Assessment & Plan (10/13/2022 6:42 AM EDT): Goal BP <140/90 per JNC-8, < 130/80 per ACC/AHA gudieline - BP elevated today -Continue working on lifestyle modifications. -Discontinue amlodipine due to LE edema -Start losartan 50 mg daily -Advised to check BP at home. -Continue Auto-PAP -refer to CDTM for co-management --follow-up in 3 months or sooner prn Resolved Problems Problem Noted Date Diagnosed Date Resolved Date Lab test positive for detect ion of COVID-19 virus 09/29/2022 10/06/2022 Encounters Date Type Department Care Team Description 03/30/2024 3:00 PM EST Telemedicine [address] [address] Shay Méndez, PharmReno Hypertension, unspecified type (Primary Dx) 03/29/2024 3:30 PM EST Office Visit [address] [address] Alysa Blair MD Hypertension, unspecified type (Primary Dx); JANA (obstructive sleep apnea); Impaired fasting glucose; Finger stiffness, left; Finger pain, left; Hyperlipidemia, unspecified hyperlipidemia type; Chronic left-sided low back pain, unspecified whether sciatica present; Cardiovascular risk factor 03/29/2024 Travel 03/29/[address] [address] Shay Méndez PharmD insurance 03/25/[address] [address] Chelle Law [place] chart prep 03/11/2024 Orders Only [address] [address] Alysa Blair MD Hypertension, unspecified type (Primary Dx) 03/11/[address] [address] Alysa Blair MD 02/16/2024 Orders Only [address] [address] Alysa Blair MD 02/12/2024 Travel from Last 3 Months Immunizations Name Administration Dates Next Due Influenza injectable quadriv alent IIV4 with preservative 11/24/2017,02/21/2016 Influenza injectable quadriv alent preservative free 12/02/2022,02/07/2022,01/12/2020 Influenza, IIV3, injectable 01/30/2014 Influenza, Split (incl. mitchel fied surface antigen) 01/27/2013,11/18/2011 Influenza, seasonal, injecta ble, preservative free 02/12/2024 Tdap 11/06/2023,02/03/2012 Zoster, Recombinant 03/27/2020,01/26/2020 Social History Tobacco Use Types Packs/Day Years Used Date Smoking Tobacco: Never Smokeless Tobacco: Never Depression Answer Date Recorded Patient Health Questionnaire-9 Score 0 10/06/2022 Housing Stability Answer Date Recorded What is your housing situation today? I have housing today, but I am worried about losing housing in the future 03/29/[address] you li ve. Do you have problems with any of the following? None of the above 03/29/2024 Food Insecurity Answer Date Recorded Within the past 12 months, y ou worried that your food would run out before you got money to buy more: Never True 03/29/2024 Within the past 12 months,th e food you bought just didn't last and you didn't have enough money to get more: Never True Transportation Answer Date Recorded In the past 12 months, has l ack of transportation kept you from medical appts, meetings, work or from getting things needed for daily living? No 03/29/2024 Utilities Answer Date Recorded In the past 12 months, has t he electric, gas, oil or water company threatened to shut off services in your home? No 03/29/2024 Depression Answer Date Recorded Patient Health Questionnaire-2 Score 0 10/06/2022 Internet Access Answer Date Recorded Internet Access Q1 Yes 03/29/2024 Internet Access Q2 Not on file 03/29/2024 Sex and Gender Information Value Date Recorded Sex Assigned at Male 01/06/2022 10:22 AM EDT Legal Sex Male 10:22 AM EDT Gender Identity Male 01/06/2022 10:22 AM EDT Sexual Orientation Straight 01/06/2022 10 :22 AM EDT Last Filed Vital Signs Vital Sign Reading Time Taken Comments Blood Pressure 145/84 03/29/2024 4:11 PM EST Pulse 101 03/29/2024 4:11 PM EST Temperature 36.4 ??C (97.5 ??F) 03/29/2024 4:11 PM ES T Respiratory Rate 16 03/29/2024 4:11 PM EST Oxygen Saturation 99% 03/29/2024 4:11 PM EST Inhaled Oxygen Concentration - - Weight 90.4 kg (199 lb 6.4 oz) 03/29/2024 4:11 P M EST Height 175 cm (5' 8.9 ) 10/06/2022 3:26 PM EDT Body Mass Index 29.53 10/06/2022 3:26 PM EDT Plan of Treatment Upcoming Encounters Date Type Department Care Team (Late st Contact Info) Description 05/11/2024 3:30 PM EST Telemedicine [facility] MEDICINE [address] [place], [place] [phone] Shay Méndez, PharmD [address] [place] [address] Health Maintenance Due Date Last Done Comments CT Colonography 1964 FIT DNA/Cologuard 1964 FIT 1964 FOBT 1964 HIV Screening 1964 Sigmoidoscopy 1964 Hepatitis C Screening 1982 Hepatitis B Vaccines (1 of 3 - 19+ 3-dose series) 10/04/1983 Pneumococcal Vaccine: 50+ Years (1 of 1 - PCV) 2014 Depression Screening 10/07/2023 10/06/2022, 10/07/19 23 COVID-19 Vaccine ( season) 2023 02/07/2022, 03/12/2021, 07/25/2020, Additional history exists Alcohol/Substance Use Screening 03/29/2025 03/29/2024 SDOH Screening 03/29/2025 03/29/2024 Tobacco Screening 03/29/2025 03/29/2024 Colonoscopy 04/05/2025 04/05/2015 Colorectal Cancer Screening 04/05/2025 Lipid Panel 02/15/2029 02/16/2024, 08/0 03/2022, 04/26/2021 DTaP/Tdap/Td Vaccines (3 - Td or Tdap) 11/05/2033 11/06/2023, 02/03/2012 RSV Patients and Patients Aged 60 years or older (1 - 1-dose 75+ series) 10/04/2039 Zoster Vaccines Completed 03/27/2020, 01/26/2020 Influenza Vaccine Completed 02/12/2024, , 02/07/2022, Additional history exists HIB Vaccines Aged Out No longer eligi ble based on patient's age to complete this topic HPV Vaccines Aged Out No longer eligi ble based on patient's age to complete this topic Hepatitis A Vaccines Aged Out No long er eligible based on patient's age to complete this topic IPV Vaccines Aged Out No longer eligi ble based on patient's age to complete this topic Meningococcal Vaccine Aged Out No maikol jayden eligible based on patient's age to complete this topic RSV under 20 months Aged Out No longe r eligible based on patient's age to complete this topic Rotavirus Vaccines Aged Out No longer eligible based on patient's age to complete this topic Goals Goal Patient Goal Type Associated Problems Recent Progress Patient-Stated? Author Blood Pressure < 140/90 Blood Pressure 145/84( 025 4:11 PM EST) Shay Sharp, Jacques Procedures Procedure Name Priority Date/Time Associated Diagnosis Comments LIPID PANEL, STANDARD Routine 02/16/2024 7:09 AM EST BASIC METABOLIC PANEL Routine 02/16/2024 7:09 AM EST HEPATIC FUNCTION PANEL Routine 02/16/2024 7:09 AM EST HM COLONOSCOPY Routine 04/05/2015 from Last 3 Months or Most Recently Relevant to Health Maintenance Results * Hepatic Function Panel (02/16/2024 7:09 AM EST) Bilirubin, Total 0.7 0.0 - 1.0 mg/dL [facility] Bilirubin, Direct 0.2 0.0 - 0.5 mg/dL [facility] Aspartate Amino Transferase 19 5 - 37 U/L [facility] Alanine Aminotransferase 24 0 - 40 U/L [facility] Total Protein 7.2 6.5 - 8.0 g/dL [facility] Albumin Level 4.0 3.5 - 5.0 g/dL [facility] Alkaline Phosphatase 58 39 - 117 U/L [facility] 02/16/2024 7:09 AM EST 02/16/2024 7:09 AM EST Alysa Blair MD LAB BLOOD ORDERABLES Final Resul t Performing Organization Address [facility] Co de Phone Number [facility] [address] [place] [address] [phone] * (ABNORMAL) Lipid Panel, Standard (02/16/2024 7:09 AM EST) Triglycerides 155(H) <150 mg/dL [facility] Comment:Desirable Triglyceri de: less than 150 mg/dLBorderline High Triglyceride 150-199 mg/dLHigh Triglyceride: 200-499 mg/dLVery High Triglyceride: greater than or equal to 5OO mg/dL Cholesterol 138 <200 mg/dL [facility] Comment:Desirable Cholestero l: less than 200 mg/dLBorderline High Cholesterol: 200-239 mg/dLHigh Cholesterol: greater than 239 mg/dL LDL Cholesterol Calculated 73 <100 mg/dL [facility] Comment:Desirable LDL: less than 100 mg/dLNear Optimal/Above Optimal LDL: 110- 129 mg/dLBorderline High LDL: 130-159 mg/dLHigh LDL: 160-189 mg/dLVery High LDL: greater than or equal to 190 mg/dL HDL Cholesterol 34(L) >40 mg/dL [facility] Comment:Desirable HDL: great er than 40 mg/dL Note: This HDL assay may give artificially low results in patients with liver disease. 02/16/2024 7:09 AM EST 02/16/2024 7:09 AM EST Alysa Blair MD LAB BLOOD ORDERABLES Final Resul t Performing Organization Address [facility] Co de Phone Number [facility] [address] [place] [address] [phone] * (ABNORMAL) Basic Metabolic Panel (02/16/2024 7:09 AM EST) Sodium 140 135 - 145 mmol/L [facility] Potassium 3.8 3.3 - 5.1 mmol/L [facility] Chloride 107 96 - 108 mmol/L [facility] Carbon Dioxide 28 22 - 29 mmol/L [facility] Anion Gap 9(L) 12 - 20 [facility] Urea Nitrogen (BUN) 12 9 - 16 mg/dL [facility] Creatinine, Serum 0.88 0.5 - 1.4 mg/dL [facility] Estimated Glomerular Filt Rate >60 [facility] Comment:Chronic Kidney Disea se: Estimated GFR < 60 mL/min/[id number] Kidney Disease: Estimated GFR < 15 mL/min/1.73m2 Glucose 102 60 - 115 mg/dL [facility] Calcium 9.0 8.4 - 10.2 mg/dL [facility] 02/16/2024 7:09 AM EST 02/16/2024 7:09 AM EST Alysa Blair MD LAB BLOOD ORDERABLES Final Resul t [facility] [address] [place] [address] [phone] * Colonoscopy (04/05/2015) Colonoscopy Normal Normal 04/05/2015 Lisseth Provider [facility] Edited Result - Final from Last 3 Months or Most Recently Relevant to Health Maintenance Insurance [employer] Care Teams Community Center Worker Relationship Specialty Start Date End Date Alysa Blair MD [address] [place] [phone] PCP - General Family Medicine 02/20/20 Shay Méndez, EmmanuelD [address] [place] [phone] Pharmacist Internal Medicine 11/26/22
--- OUTSIDE RECORDS SUMMARY | 2024-04-26 16:08 | XMS_ITS | Encounter Summary ---
Author Organization [employer] Address [address] [facility] [address] [place] [address] Care Team Providers Care Wash Tank Tender Name Role Phone Alysa Blair MD Primary Care Provider [phone] Shay Méndez PharmD Unavailable [phone] Reason for Visit * Reason Comments Med Refill Encounter Details Date Type Department Care Team ([facility] st Contact Info) Description 09/28/2023 Refill [facility] MEDICINE [address] [place], [place] [phone] Shay Méndez, PharmD [address] [place] [address] Hypertension, unspecified type Social History Tobacco Use Types Packs/Day Years Used Date Smoking Tobacco: Never Smokeless Tobacco: Never Depression Answer Date Recorded Patient Health Questionnaire-9 Score 0 10/06/2022 Housing Stability Answer Date Recorded What is your housing situation today? I have steve oliveros 01/12/[address] you li ve. Do you have problems with any of the following? None of the above 01/12/2023 Food Insecurity Answer Date Recorded Within the past 12 months, y ou worried that your food would run out before you got money to buy more: Never True 01/12/2023 Within the past 12 months,th e food you bought just didn't last and you didn't have enough money to get more: Never True 08/2022 Transportation Answer Date Recorded In the past 12 months, has l ack of transportation kept you from medical appts, meetings, work or from getting things needed for daily living? No 01/12/2023 Utilities Answer Date Recorded In the past 12 months, has t he electric, gas, oil or water [employer] threatened to shut off services in your home? No 01/12/2023 Depression Answer Date Recorded Patient Health Questionnaire-2 Score 0 10/06/2022 Sex and Gender Information Value Date Recorded Sex Assigned at Male 01/06/2022 10:22 AM EDT Legal Sex Male 10:22 AM EDT Gender Identity Male 01/06/2022 10:22 AM EDT Sexual Orientation Straight 01/06/2022 10 :22 AM EDT documented as of this encounter Plan of Treatment Upcoming Encounters Date Type Department Care Team (Late st Contact Info) Description 05/11/2024 3:30 PM EST Telemedicine [facility] MEDICINE [address] [place] [address] Shay Méndez PharmD [address] [place] [phone] documented as of this encounter Goals Goal Patient Goal Type Associated Problems Recent Progress Patient-Stated? Author Blood Pressure < 140/90 Blood Pressure 145/84( 025 4:11 PM EST) No Shay Méndez, PharmReno documented as of this encounter Visit Diagnoses Diagnosis Hypertension, unspecified type documented in this encounter Additional Health Concerns Assessment Noted Time PHQ-9 Depression Total Score: 0 10/07/19 23 3:27 PM EDT documented as of this encounter Care Teams Wash Tank Tender Relationship Specialty Start Date End Date Alysa Blair MD [address] [place] [phone] PCP - General Family Medicine 02/20/20 Shay Méndez, EmmanuelD [address] [place] [phone] Pharmacist Internal Medicine 11/26/22 documented as of this encounter
--- OUTSIDE RECORDS SUMMARY | 2024-04-26 16:08 | XMS_ITS | Encounter Summary ---
Author Organization [employer] Address [address] [facility] 7t [place] [address] Care Team Providers Care Monorail Operator Name Role Phone Alysa Blair MD Primary Care Provider [phone] Shay Méndez PharmD Unavailable [phone] Reason for Visit * Reason Comments Med Refill Encounter Details Date Type Department Care Team ([facility] st Contact Info) Description 11/02/2023 Refill [facility] MEDICINE [address] [place], [place] [phone] Shay Méndez, PharmD [address] [place] [address] Hypertension, unspecified type Social History Tobacco Use [...] t he electric, gas, oil or water [employer] threatened to shut off services in your [...] Info) Description 05/11/2024 3:30 PM EST Telemedicine [facility] MEDICINE [address] [place] [address] Shay Méndez PharmD [address] [place] [phone] documented as of this encounter Goals Goal [...] documented as of this encounter Care Teams Monorail Operator Relationship Specialty Start Date End Date Alysa Blair MD [address] [place] [phone] PCP - General Family Medicine 02/20/20 Shay Méndez, EmmanuelD [address] [place] [phone] Pharmacist Internal Medicine 11/26/22 documented as of this encounter
--- OUTSIDE RECORDS SUMMARY | 2024-04-26 16:08 | XMS_ITS | Clinical Summary ---
Author Organization [facility] Address [address] [place] [address] Phone Care Team Providers Care Electro Mechanical Technologist Name Role Phone Alysa Blair MD Primary Care Provider [phone] Medications No known medications Active Problems No known active problems Encounters Date Type Department Care Team Description 02/08/2024 6:09 PM EST - 02/08/2024 9:22 PM EST Emergency [facility] Emergency [address] [place] [address] Foreign body, eye, left, initial encounter (Primary Dx) Discharge Disposition: Home or Self Care from Last 3 Months Medical History Medical History Date Comments Hypertension Social History Tobacco Use Types Packs/Day Years Used Date Smoking Tobacco: Never Smokeless Tobacco: Never Tobacco Cessation:Counseling Given: Not Answered Alcohol Use Standard Drinks/Week Comments Yes 0 (1 standard drink = 0.6 oz pur e alcohol) Sex and Gender Information Value Date Recorded Sex Assigned at Male 02/08/2024 6:26 PM EST Legal Sex Male 12:47 PM EST Gender Identity Male 02/08/2024 6:26 PM EST Sexual Orientation Choose not to disclose 2023 6:26 PM EST Obstetrics History Last Filed Vital Signs Vital Sign Reading Time Taken Comments Blood Pressure 165/97 02/08/2024 5:28 PM EST Pulse 92 02/08/2024 5:28 PM EST Temperature 36.5 ??C (97.7 ??F) 02/08/2024 5:28 PM ES T Respiratory Rate 16 02/08/2024 5:28 PM EST Oxygen Saturation 98% 02/08/2024 5:28 PM EST Inhaled Oxygen Concentration - - Weight 88 kg (194 lb) 02/08/2024 5:28 PM EST Height 172.7 cm (5' 8 ) 02/08/2024 5:28 PM EST Body Mass Index 29.5 02/08/2024 5:28 PM EST Plan of Treatment Health Maintenance Due Date Last Done Comments Hepatitis B Vaccines (1 of 3 - 19+ 3-dose series) 10/04/1983 Pneumococcal Vaccine: 50+ Years (1 of 1 - PCV) 2014 Colorectal Cancer Screening: Colonoscopy 02/04/2022 HIV Screening 02/04/2022 Hepatitis C Screening 02/04/2022 Social Influencers of Health Screening 02/04/2022 Depression Screening 10/07/2023 10/06/2022 COVID-19 Vaccine ( season) 2023 02/07/2022, 03/12/2021, 07/25/2020, Additional history exists Influenza Vaccine (#1) 2023 , 02/07/2022, 01/12/2020, Additional history exists Hypertension/CHF/CAD Annual BMP Blood Test 02/09/2024 Cholesterol Screening (Lipid Panel) 10/08/2027 10/07/2022 DTaP,Tdap,and Td Vaccines (3 - Td or Tdap) 11/05/2033 11/06/2023, 02/03/2012 RSV Immunization Patients 60+ Years Old (1 - 1-dose 75+ series) 10/04/2039 Zoster Vaccines Completed 03/27/2020, 01/26/2020 HIB Vaccines Aged Out No longer eligi [...] on patient's age to complete this topic MMR Vaccines Aged Out No longer eligi ble based on patient's age to complete this topic Meningococcal ACWY Vaccine Aged Out N o longer eligible based on patient's age to complete this topic Meningococcal B Vacine Aged Out No lo nger eligible based on patient's age to complete this topic Pneumococcal Vaccine: Pediatrics (0 to 5 Years) and At-Risk Patients (6 to 64 Years) Aged Out No longer eligible based on patient's age to complete this topic RSV Immunization Patients Under 20 months Aged Out No longer eligible based on patient's age to complete this topic Varicella Vaccines Aged Out No longer eligible based on patient's age to complete this topic Procedures Procedure Name Priority Date/Time Associated Diagnosis Comments ED FOREIGN BODY REMOVAL - OCULAR Routine 02/08/2024 9:12 PM EST NH REMOVAL FOREIGN BODY EXTERNAL EYE CORNEAL W/ SLIT LAMP Routine 02/08/2024 9:12 PM EST from Last 3 Months Results * NH REMOVAL FOREIGN BODY EXTERNAL EYE CORNEAL W/ SLIT LAMP, HC REMOVAL FOREIGN BODY LEVEL 1 (02/08/2024 9:12 PM EST) Tarik Frazier MD - 02/08/2024 9:12 PM EST ANGEL Velasco ? 02/08/2024 ??9:19 PM Foreign Body Removal - Ocular Date/Time: 02/08/2024 9:12 PM Performed by: ANGEL Velasco Authorized by: Tarik Lui MD ?? Consent: ??Consent obtained: ??Verbal ??Consent given by: ??Patient ??Risks discussed: ??Pain and corneal damage ??Alternatives discussed: ??Delayed treatment and alternative treatment [place] protocol: ??Procedure explained and questions answered to patient or proxy's satisfaction: yes ?Patient identity confirmed: ??Verbally with patient and arm band Location: ??Location: ??L corneal ??Depth: ??Superficial Pre-procedure details: ??Imaging: ??None ??Fluorescein exam: yes ?Fluorescein uptake: no ?? Anesthesia: ??Local anesthetic: ??Proparacaine drops Procedure details: ??Localization method: ??Slit lamp ??Removal mechanism: ??Sterile cotton-tip applicator ??Foreign bodies recovered: ??1 ??Intact foreign body removal: yes ?Residual rust ring observed: yes ?Residual rust ring removed: no ?? Post-procedure details: ??Confirmation: ??No additional foreign bodies on visualization and complete removal verified with slit lamp ??Procedure completion: ??Tolerated well, no immediate complications us Tarik Lui MD IN CLINIC/BEDSIDE ORDERABLES Fi nal Result from Last 3 Months Insurance [facility] Care Teams Electro Mechanical Technologist Relationship Specialty Start Date End Date Alysa Blair MD [address] [place] [phone] PCP - General Family Medicine 02/08/24
--- OUTSIDE RECORDS SUMMARY | 2024-04-26 16:08 | XMS_ITS | Encounter Summary ---
Author Organization [employer] Address [address] [facility] [address] [place] [address] Care Team Providers Care Bump Grader Operator Name Role Phone Alysa Blair MD Primary Care Provider [phone] Shay Méndez PharmD Unavailable [phone] Encounter Details Date Type Department Care Team (Latest Contact Info) Description 03/29/2024 Travel Social History Tobacco Use Types Packs/Day Years [...] Info) Description 05/11/2024 3:30 PM EST Telemedicine [facility] [address] [place] [address] Shay Méndez, Jacques [address] [place] [address] documented as of this encounter Goals Goal Patient Goal Type Associated Problems Recent Progress Patient-Stated? Author Blood Pressure < 140/90 Blood Pressure 145/84( 025 4:11 PM EST) No Shay Méndez PharmD documented as of this encounter Visit Diagnoses Not on filedocumented in this encounter Additional Health Concerns Assessment Noted Time PHQ-9 Depression Total Score: 0 10/07/19 23 3:27 PM EDT documented as of this encounter Care Teams Bump Grader Operator Relationship Specialty Start Date End Date Alysa Blair MD [address] [place] [phone] PCP - General Family Medicine 02/20/20 Shay Méndez, EmmanuelD [address] [place] [phone] Pharmacist Internal Medicine 11/26/22 documented as of this encounter
--- OUTSIDE RECORDS SUMMARY | 2024-04-26 16:08 | XMS_ITS | Encounter Summary ---
Author Organization [employer] Address [address] [place] [address] [address] [place] [address] Care Team Providers Care Core Mounter Name Role Phone Alysa Blair MD Primary Care Provider [phone] Shay Méndez PharmD Unavailable [phone] Reason for Visit * Reason Comments Med Refill Encounter Details Date Type Department Care Team (Late st Contact Info) Description 12/03/2022 Refill [facility] [address] [place] [address] [phone] Alysa Blair MD [address] [place] [address] Social History Tobacco Use Types Packs/Day Years Used Date Smoking Tobacco: Never Smokeless Tobacco: Never Depression Answer Date Recorded Patient Health Questionnaire-9 Score 0 10/06/2022 Depression Answer Date Recorded Patient Health Questionnaire-2 [...] Info) Description 05/11/2024 3:30 PM EST Telemedicine [facility] [address] [place], [place] [phone] Shay Méndez, PharmD [address] [place] [address] documented as of this encounter Goals Goal Patient Goal Type Associated Problems Recent Progress Patient-Stated? Author Blood Pressure < 140/90 Blood Pressure 145/84( 025 4:11 PM EST) No Shay Méndez, PharmD documented as of this encounter Visit Diagnoses Not on filedocumented in this encounter Additional Health Concerns Assessment Noted Time PHQ-9 Depression Total Score: 0 10/07/19 23 3:27 PM EDT documented as of this encounter Care Teams Core Mounter Relationship Specialty Start Date End Date Alysa Blair MD [address] [place] [address] PCP - General Family Medicine 02/20/20 Shay Méndez, PharmD [address] [place] [address] Pharmacist Internal Medicine 11/26/22 documented as of this encounter
--- OUTSIDE RECORDS SUMMARY | 2024-04-26 16:08 | XMS_ITS | Encounter Summary ---
Author Organization [employer] Address [address] [place] [address] [address] [place] [address] Care Team Providers Care Real Estate Sales Manager Name Role Phone Alysa Blair MD Primary Care Provider [phone] Shay Méndez PharmD Unavailable Reason for Visit * Consultation (Routine) - Pending Review Specialty Diagnoses / Procedures Referred By Contac t Referred To Contact Pharmacy Diagnoses Hypertension, unspecified type Alysa Blair MD [address] [place] [address] Phone: tel: fax: Referral ID Status Reason Start Date Expiration Date Visits Requested Visits Authorized [id number] Pending Review Consult and Treat 03/11/2024 03/11/2025 6 6 Encounter Details Date Type Department Care Team (Late st Contact Info) Description 03/30/2024 3:00 PM EST Telemedicine [facility] [address] [place], [place] [phone] Shay Méndez, PharmD [address] [place], [place] [phone] Hypertension, unspecified type (Primary Dx) Social History Tobacco Use Types Packs/Day Years [...] the past 12 months, has t he [employer], gas, oil or water company threatened to [...] AM EDT documented as of this encounter Progress Notes * Shay Méndez, PharmD - 03/30/2024 3:00 PM EST Pharmacy Consult Visit Type: CDTM - Hypertension Pharmacist: Shay Méndez, PharmD Arnaldo Mcrae is a 58 y.o. year old patient here for follow-up visit completed over the phone. Subjective History: General / Intake (updated 03/30/2024) Allergies: has No Known Allergies. Read/Write: Yes, in Citizen Of [place] Recent Hospitalizations: No Social History as reported by patient: Tobacco: Denies Alcohol: Current Weekends 10 beers total on weekends Caffeine: Current, 3 cup of coffee/day Illicit drugs: Denies Diet: Reduced take out consumption to a few times a month. 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 Denies exercising since returning from [place]. Adherence / patient self-management Takes from vials Denies missed doses or removing medication Refill history demonstrates adherence to antihypertensive medications. OTC medication, vitamin, supplement use- Not consistently: vitamin D, vitamin e, vitamin c, [id number] daily, coenzyme-Q10 Hypertension Patient reports adherence and tolerance to hydrochlorothiazide started at last visit. BMP has not been drawn after 4 weeks as previously discussed. Denies increased urinary frequency. Patient actually reports less frequent nocturia since starting hydrochlorothiazide. BP at PCP visit yesterday (03/30/2024) was not at goal, 145/84 mmHg. Patient reports BP was 135/something upon recheck. Pertinent negatives include chest pain, head ache, blurry vision, dizziness Patient unable to measure BP during today's televisit (at work). Patient reported the following SMBP values: Date Blood pressure (mmHg) Heart rate (bpm) 03/18/24 142/91 76 03/19/24 137/84 83 03/20/24 128/83 78 03/21/24 133/86 79 03/23/24 143/83 77 03/24/24 120/78 79 03/25/24 138/86 75 03/26/24 138/88 73 03/27/24 131/81 92 03/28/24 126/79 66 Objective History: Treatment history/considerations: PMH: HTN, JANA, Impaired fasting glucose, Hyperlipidemia, asteatosis cutis Medication: amlodipine 09/2022 d/c Due to BRY The 10-year ASCVD risk score (Lulú HASKINS, et al., 2019) is: 10.7% Values used to calculate the score: Age: 58 years Sex: Male Is Non- : No Diabetic: No Tobacco smoker: No Systolic Blood Pressure: 145 mmHg Is BP treated: Yes HDL Cholesterol: 34 mg/dL Total Cholesterol: 138 mg/dL Recent labs: Renal function (10/07/2022): eGFR: >60 mL/min/1.73 m2 SCr = 0.79 mg/dL CrCl (AdjBW)= 115 mL/min Lab Results Component Value Date ALT 24 02/16/2024 AST 19 02/16/2024 LDLCHOLCAL 73 02/16/2024 TRIG 155 (H) 02/16/2024 K 3.8 02/16/2024 NA 140 02/16/2024 CREATININE 0.88 02/16/2024 EGFR >60 02/16/2024 HGBA1C 5.2 10/07/2022 HGBA1C 5.4 04/26/2021 HGBA1C 5.4 11/02/2019 HGBA1C 5.4 11/02/2019 HGBA1C 5.4 11/02/2019 Recent blood pressure readings: BP Readings from Last 4 Encounters: 03/29/24 (!) 145/84 02/12/24 (!) 142/78 11/06/23 136/84 07/21/23 (!) 156/94 Pulse Readings from Last 4 Encounters: 03/29/24 101 02/12/24 94 11/06/23 88 07/21/23 96 Immunizations Due: COVID-19 and HepB Previously declined additional Covid Booster Preferred Pharmacy: [id number] [address] [facility] [address] [place] [phone] [facility] - [place], [place] - [address] [facility] [address] [facility] [phone] [id number] - [place], [place] - [address] [facility] [address] [facility] [address] Assessment/Plan: Hypertension Pharmacotherapy: Losartan-hydrochlorothiazide 100-12.5 mg po daily Goals of Therapy per JNC 8: Achieve BP <140/90mmHg Plan: SMBG measurements show that BP control has improved, patient agrees to continue current therapy. BMP ordered for monitoring 4 weeks after initiation of thiazide diuretic. Patient agrees to have drawn before next FU visit. Counseled the patient on the importance of limiting caffeine intake and maintaining an active lifestyle. Patient has plan to resume gym sessions 3-4 times weekly. CDTM FU in 6 weeks for BP check and evaluation of results of BMP. May consider increasing hydrochlorothiazide dose to 25 mg if necessary. Education: Reviewed benefits of DASH diet, reduced caffeine intake, and increased exercise for improved BP control. Counseling provided to SMBP daily & log results for review in follow up. Reviewed BP goals, patient instructed to call if extremes of BP are noted prior to next scheduled visit. No orders of the defined types were placed in this encounter. documented in this encounter Plan of Treatment Upcoming Encounters Date Type Department Care Team (Late st Contact Info) Description 05/11/2024 3:30 PM EST Telemedicine [facility] [address] [place] [address] Shay Méndez PharmD [address] [place] [address] Scheduled Referrals Name Type Priority Associated Diagnoses Orde r Schedule Referral to Pharmacy CDTM Outpatient Referral Routine Hypertension, unspecified type Ordered: 03/11/2024 documented as of this encounter Goals Goal Patient Goal Type Associated Problems Recent Progress Patient-Stated? Author Blood Pressure < 140/90 Blood Pressure 145/84( 025 4:11 PM EST) No Shay Méndez PharmD documented as of this encounter Visit Diagnoses Diagnosis Hypertension, unspecified type- Primary documented in this encounter Additional Health Concerns Assessment Noted Time PHQ-9 Depression Total Score: 0 10/07/19 23 3:27 PM EDT documented as of this encounter Care Teams Real Estate Sales Manager Relationship Specialty Start Date End Date Alysa Blair MD [address] [place] [address] PCP - General Family Medicine 02/20/20 Shay Méndez, Jacques [address] [place] [address] Pharmacist Internal Medicine 11/26/22 documented as of this encounter
--- OUTSIDE RECORDS SUMMARY | 2024-04-26 16:08 | XMS_ITS | Encounter Summary ---
Author Organization [employer] Address [address] [place] [address] 7[address] [place] [address] Care Team Providers Care Physical Education Professor Name Role Phone Alysa Blair MD Primary Care Provider [phone] Shay Méndez PharmD Unavailable [phone] Reason for Referral * Consultation (Routine) - Authorized Specialty Diagnoses / Procedures Referred By Contzayra t Referred To Contact Orthopaedic Surgery Diagnoses Finger stiffness, left Finger pain, left Alysa Blair MD [address] [place] [phone] Phone: tel: fax: [facility] [address] [place] [address] Phone: tel: Referral ID Status Reason Start Date Expiration Date Visits Requested Visits Authorized [id number] Authorized Specialty Services Required 04/02/2024 04/02/2025 1 1 Encounter Details Date Type Department Care Team (Latest Contact Info) Description 03/29/2024 3:30 PM EST Office Visit [facility] [address] [place] [address] [phone] Alysa Blair MD [address] [place] [address] [phone] Hypertension, unspecified type (Primary Dx); JANA (obstructive sleep apnea); Impaired fasting glucose; Finger stiffness, left; Finger pain, left; Hyperlipidemia, unspecified hyperlipidemia type; Chronic left-sided low back pain, unspecified whether sciatica present; Cardiovascular risk factor Social History Tobacco Use Types Packs/Day Years [...] AM EDT documented as of this encounter Last Filed Vital Signs Vital Sign Reading [...] oz) 03/29/2024 4:11 P M EST Height - - Body Mass Index 29.53 10/06/2022 3:26 PM EDT documented in this encounter Progress Notes * Alysa Blair MD - 03/29/2024 3:30 PM EST Subjective Arnaldo Mcrae is a 58 y.o. male who presents for ED follow up. Background: Patient Active Problem List Diagnosis Allergic rhinitis Asteatosis cutis Hypertension Hyperlipidemia Impaired fasting glucose Pain in the coccyx JANA (obstructive sleep apnea) History of COVID-19 Post-COVID chronic dyspnea Onychomycosis Finger stiffness, left Finger pain, left Back pain Cardiovascular risk factor Our last encounter was 07/21/2023. Interval history: He was seen by carton making machinist, ELVER, in September 2023. No CAD. He has been following with Shay Méndez, EmmanuelD, for CDTM hypertension. Last seen on 02/12/24. Started on hydrochlorothiazide 12.5 mg daily. In order to decrease pill burden, prescribed losartan 0 hctz 100-12.5 mg daily. He mentioned of hand pain and stiffness. Seen in ED due to FB in his eye on 02/08/24. He was seen by service member for a follow up. Today: Patient complains his left ring finger is stuck in a flexed position in the mornings. Stiffness andpain have been worsening. Right-handed. Blood pressure and heart rate were elevated and patient admits to drinking coffee. He states normalat home. Review of Systems Constitutional: Negative for activity change, appetite change and fever. Respiratory: Negative for shortness of breath. Cardiovascular: Negative for chest pain. Objective Vitals: 03/29/24 1611 BP: (!) 145/84 Pulse: 101 Resp: 16 Temp: 97.5 ??F (36.4 ??C) TempSrc: Temporal SpO2: 99% Weight: 199 lb 6.4 oz (90.4 kg) Physical Exam Constitutional: General: He is not in acute distress. Appearance: Normal appearance. He is not ill-appearing. HENT: Head: Normocephalic and atraumatic. Mouth/Throat: Mouth: Mucous membranes are moist. Eyes: Extraocular Movements: Extraocular movements intact. Pupils: Pupils are equal, round, and reactive to light. Cardiovascular: Rate and Rhythm: Normal rate and regular rhythm. Heart sounds: No murmur heard. Pulmonary: Effort: Pulmonary effort is normal. No respiratory distress. Breath sounds: Normal breath sounds. No wheezing or rhonchi. Skin: General: Skin is warm. Neurological: Mental Status: He is alert. Mental status is at baseline. Psychiatric: Mood and Affect: Mood normal. Results: Lab Results Component Value Date NA 140 02/16/2024 K 3.8 02/16/2024 CL 107 02/16/2024 CO2 28 02/16/2024 BUN 12 02/16/2024 CREATININE 0.88 02/16/2024 CRCLCALCPH 110.5 06/07/2020 EGFR >60 02/16/2024 GLUCOSE 102 02/16/2024 TOTALBILIRUB 0.7 02/16/2024 AST 19 02/16/2024 ALT 24 02/16/2024 TOTPROTEIN 7.2 02/16/2024 ALB 4.0 02/16/2024 ALP 58 02/16/2024 Lab Results Component Value Date TRIG 155 (H) 02/16/2024 CHOL 138 02/16/2024 LDLCHOLCAL 73 02/16/2024 HDL 34 (L) 02/16/2024 Lab Results Component Value Date HGBA1C 5.2 10/07/2022 Lab Results Component Value Date WBC 5.4 10/07/2022 HGB 15.2 10/07/2022 HCT 44.9 10/07/2022 PLT 228 10/07/2022 MCV 86.3 10/07/2022 The 10-year ASCVD risk score (Lulú HASKINS, et al., 2019) is: 10.7% Values used to calculate the score: Age: 58 years Sex: Male Is Non- : No Diabetic: No Tobacco smoker: No Systolic Blood Pressure: 145 mmHg Is BP treated: Yes HDL Cholesterol: 34 mg/dL Total Cholesterol: 138 mg/dL Screening and Health Care Maintenance: PHQ-2/9 Score: No data recorded JASPER-7 Score: No data recorded Health Maintenance Due Topic Date Due HIV Screening Never done Hepatitis C Screening Never done Hepatitis B Vaccines (1 of 3 - 19+ 3-dose series) Never done Depression Screening 10/07/2023 COVID-19 Vaccine ( season) 2023 Assessment/Plan Problem List Items Addressed This Visit Hypertension - Primary - Goal BP <140/90 per JNC-8, < 130/80 per ACC/AHA gudieline - BP elevated today - Co-managed by our pharmacist, Shay Méndez, last seen in Feb 2024 - Continue working on lifestyle modifications. - Continue checking BP at home - Continue losartan - hctz 100 - 12.5 mg daily - Continue Auto-PAP - follow-up in 3 months or sooner prn Hyperlipidemia - last lipid profile in Feb 2024 - current medication: Atorvastatin 10 mg at bedtime, consider intensifying - continue working on lifestyle modifications Impaired fasting glucose - Family Hx DM2 - annual screening - A1C 5.4% - lifestyle modifications JANA (obstructive sleep apnea) - following with sleep medicine clinic - continue Auto-PAP 6-16 cm H2O Finger stiffness, left Relevant Orders Referral to Orthopaedic Surgery Finger pain, left - diclofenac prn Relevant Orders Referral to Orthopaedic Surgery Back pain - back execise - judicious use of diclofenac Cardiovascular risk factor - [facility] making machinist, last seen in September 2023 - normal nuclear stress test in 2018 and echo in 2021 - given reassurance that patient does not have CAD - continue working on lifestyle modifications - 10-year ASCVD risk is > 10%. - Consider intensifying statin and discuss about aspirin. - Consider coronary calcium score No Known Allergies Current Outpatient Medications Medication Instructions albuterol 108 (90 Base) MCG/ACT inhaler 2 puffs, Inhalation, Every 4 hours PRN atorvastatin (Lipitor) 10 MG tablet TAKE 1 TABLET(10 MG) BY MOUTH IN THE MORNING ciclopirox (Penlac) 8 % solution Apply to affected toenails every night. diclofenac (CATAFLAM) 50 mg, Oral, Every 8 hours PRN ketoconazole (NIZOral) 2 % cream Topical, Daily losartan-hydroCHLOROthiazide (Hyzaar) 100-12.5 MG tablet 1 tablet, Oral, Daily Spacer/Aero-Holding Chambers (OptiChamber Agnes) misc 1 each, Does not apply, Every 4 hours PRN tamsulosin (FLOMAX) 0.4 mg, Oral, Nightly Follow-up: 3 months or sooner if any problem arises. Scribe attestation: Humaira Willams, am serving as a scribe to document services personally performed by Alysa Clemens on the patient's response to questions by provider and providers statements to me. Physicians Attestation: Екатерина Alysa Blair, have reviewed the information by the scribe, Humaira Gilman, for accuracy and agree with its content. documented in this encounter Miscellaneous Notes * Assessment & Plan Note - Alysa Blair MD - 04/02/2024 7:06 PM ESTAssociated Problem(s): Cardiovascular risk factor - evaluated by [facility] carton making machinist, last seen in September 2023 - normal nuclear stress test in 2018 and echo in 2021 - given reassurance that patient does not have CAD - continue working on lifestyle modifications - 10-year ASCVD risk is > 10%. - Consider intensifying statin and discuss about aspirin. - Consider coronary calcium score * Assessment & Plan Note - Alysa Blair MD - 04/02/2024 7:01 PM ESTAssociated Problem(s): Back pain - back execise - judicious use of diclofenac * Assessment & Plan Note - Alysa Blair MD - 04/02/2024 7:00 PM ESTAssociated Problem(s): Finger pain, left - diclofenac prn * Assessment & Plan Note - Alysa Blair MD - 04/02/2024 7:00 PM ESTAssociated Problem(s): Hyperlipidemia - last lipid profile in Feb 2024 - current medication: Atorvastatin 10 mg at bedtime, consider intensifying - continue working on lifestyle modifications * Assessment & Plan Note - Humaira Gilman - 03/29/2024 4:49 PM ESTAssociated Problem(s): Impaired fasting glucose - Family Hx DM2 - annual screening - A1C 5.4% - lifestyle modifications * Assessment & Plan Note - Humaira Gilman - 03/29/2024 4:48 PM ESTAssociated Problem(s): Hypertension - Goal BP <140/90 per JNC-8, < 130/80 per ACC/AHA gudieline - BP elevated today - Co-managed by our pharmacist, Shay Méndez, last seen in Feb 2024 - Continue working on lifestyle modifications. - Continue checking BP at home - Continue losartan - hctz 100 - 12.5 mg daily - Continue Auto-PAP - follow-up in 3 months or sooner prn * Assessment & Plan Note - Humaira Gilman - 03/29/2024 4:48 PM ESTAssociated Problem(s): JANA (obstructive sleep apnea) - following with sleep medicine clinic - continue Auto-PAP 6-16 cm H2O documented in this encounter Plan of Treatment Upcoming Encounters Date Type Department Care Team (Late st Contact Info) Description 05/11/2024 3:30 PM EST Telemedicine [facility] [address] [place] [address] Shay Méndez, PharmD [address] [place] [address] Scheduled Referrals Name Type Priority Associated Diagnoses Order Schedule Referral to Orthopaedic Surgery Outpatient Referral Routine Finger stiffness, left Finger pain, left Expected: 04/02/2024 (Approximate), Expires: 04/02/2025 documented as of this encounter Goals Goal Patient Goal Type Associated Problems Recent Progress Patient-Stated? Author Blood Pressure < 140/90 Blood Pressure 145/84( 025 4:11 PM EST) No Shay Méndez, PharmD documented as of this encounter Visit Diagnoses Diagnosis Hypertension, unspecified type- Primary JANA (obstructive sleep apnea) Obstructive sleep apnea (adult) (pediatric) Impaired fasting glucose Finger stiffness, left Finger pain, left Pain in soft tissues of limb Hyperlipidemia, unspecified hyperlipidemia type Chronic left-sided low back pain, unspecified whether sciatica present Cardiovascular risk factor documented in this encounter Additional Health Concerns Assessment Noted Time PHQ-9 Depression Total Score: 0 10/07/19 23 3:27 PM EDT documented as of this encounter Care Teams Physical Education Professor Relationship Specialty Start Date End Date Alysa Blair MD [address] [place] [phone] PCP - General Family Medicine 02/20/20 Shay Méndez, EmmanuelD [address] [place] [address] Pharmacist Internal Medicine 11/26/22 documented as of this encounter
--- OUTSIDE RECORDS SUMMARY | 2024-04-26 16:08 | XMS_ITS | Encounter Summary ---
Author Organization [employer] Address [address] [place] [address] [address] [place] [address] Care Team Providers Care Healthcare Market Consultant Name Role Phone Alysa Blair MD Primary Care Provider [phone] Shay Méndez PharmD Unavailable [phone] Reason for Visit * Reason Onset Date Comments insurance 03/29/2024 Encounter Details Date Type Department Care Team ([facility] st Contact Info) Description 03/29/2024 Telephone [facility] [address] [place], [place] [phone] Shay Méndez, PharmD [address] [place] [phone] insurance Social History Tobacco Use Types Packs/Day Years [...] AM EDT documented as of this encounter Miscellaneous Notes * Telephone Encounter - Tammy Linn - 03/29/2024 3:05 PM EST Verified insurance, it has PCP other pt has appt scheduled for today I called jared team MICHELE and informed to please let pt know about this because when I tried to reach pt again his phone was unavailable, so I was unable to let him know about this situation. Green team fd said she will let him know so he can have this resolved. * Telephone Encounter - Tammy Linn - 03/29/2024 2:56 PM EST Fd called pt to let him know insurance is inactive. Pt verbalized understanding ans said that is because his insurance change he has [employer] now. This will be updated on his chart. Pt has an appointment scheduled for today and another one for tomorrow. documented in this encounter Plan of Treatment Upcoming Encounters Date Type Department Care Team (Late st Contact Info) Description 05/11/2024 3:30 PM EST Telemedicine [facility] [address] [place] [address] Shay Méndez, PharmD [address] [place] [address] documented as of this encounter Goals Goal [...] documented as of this encounter Care Teams Healthcare Market Consultant Relationship Specialty Start Date End Date Alysa Blair MD [address] [place] [address] PCP - General Family Medicine 02/20/20 Shay Méndez, PharmD [address] [place] [address] Pharmacist Internal Medicine 11/26/22 documented as of this encounter
--- OUTSIDE RECORDS SUMMARY | 2024-04-26 16:08 | XMS_ITS | Encounter Summary ---
Author Organization [employer] Address [address] [place] [address] 7t [place] [address] Care Team Providers Care Coater Operator Insulation Board Name Role Phone Alysa Blair MD Primary Care Provider [phone] Shay Méndez PharmD Unavailable [phone] Reason for Referral * Consultation (Routine) - Pending Review Specialty Diagnoses / Procedures Referred By Contzayra t Referred To Contact Pharmacy Diagnoses Hypertension, unspecified type Alysa Blair MD [address] [place] [phone] Phone: tel: fax: Referral ID Status Reason Start Date Expiration Date Visits Requested Visits Authorized [id number] Pending Review Consult and Treat 03/11/2024 03/11/2025 6 6 Encounter Details Date Type Department Care Team (Late st Contact Info) Description 03/11/2024 Orders Only [facility] [address] [place] [address] [phone] Alysa Blair MD [address] [place], [place] [phone] Hypertension, unspecified type (Primary Dx) Social History [...] Info) Description 05/11/2024 3:30 PM EST Telemedicine [facility] [address] [place] [address] Shay Méndez PharmD [address] [place] [address] Scheduled Referrals Name Type Priority Associated Diagnoses [...] documented as of this encounter Care Teams Coater Operator Insulation Board Relationship Specialty Start Date End Date Alysa Blair MD [address] [place] [address] PCP - General Family Medicine 02/20/20 Shay Méndez, EmmanuelD [address] [place] [address] [place] [address] Pharmacist Internal Medicine 11/26/22 documented as of this encounter
--- OUTSIDE RECORDS SUMMARY | 2024-04-26 16:08 | XMS_ITS | Encounter Summary ---
Author Organization [employer] Address [address] [place] [address] [address] [place] [address] Care Team Providers Care Power Generation Plant Operator Name Role Phone Alysa Blair MD Primary Care Provider [phone] Shay Méndez PharmD Unavailable [phone] Reason for Visit * Reason Comments Med Refill Encounter Details Date Type Department Care Team (Late st Contact Info) Description 12/03/2022 Refill [facility] [address] [place] [address] [phone] Alysa Blair MD [address] [place] [address] Social History Tobacco Use Types Packs/Day Years [...] Info) Description 05/11/2024 3:30 PM EST Telemedicine [facility] [address] [place], [place] [phone] Shay Méndez, PharmD [address] [place] [address] documented as of this encounter Goals Goal [...] documented as of this encounter Care Teams Power Generation Plant Operator Relationship Specialty Start Date End Date Alysa Blair MD [address] [place] [address] PCP - General Family Medicine 02/20/20 Shay Méndez, PharmD [address] [place] [address] Pharmacist Internal Medicine 11/26/22 documented as of this encounter
== END 2024-04-26 16:08 | disposition home or self-care (01) ==
PROVIDERS: PCP Family Medicine
DX: M65.342 Trigger finger, left ring finger (principal)
CPT/HCPCS: 20550; 99213

== ENCOUNTER → 2024-04-26 15:14 | Outpatient (BNVA) | payer OTHER, SELFPAY | PROVIDERS: PCP Family Medicine | DX: M65.342 Trigger finger, left ring finger (principal); M25.642 Stiffness of left hand, not elsewhere classified | CPT/HCPCS: 20550; 99212; J1100; J2003 ==

== ENCOUNTER 2024-05-18 06:56 | Outpatient (REF) | payer OTHER, SELFPAY ==
[2024-05-18 08:40] LABS: Anion Gap 9 (12-20); Blood Urea Nitrogen 19 mg/dL (9-16); Carbon Dioxide 27 mmol/L (22-29); Chloride 109 mmol/L (96-108); Estimated Glomerular Filt Rate > 60; Glucose Random 99 mg/dL (60-115); Potassium 4.1 mmol/L (3.3-5.1); Sodium 141 mmol/L (135-145)
== END 2024-05-18 06:57 | disposition home or self-care (01) ==
LOC: HO.LAB 06:56
PROVIDERS: PCP Family Medicine; Visit Provider Family Medicine
DX: I10 Essential (primary) hypertension (principal)
CPT/HCPCS: 36415; 80048

== ENCOUNTER 2024-10-26 07:19 | Outpatient (REF) | payer OTHER, SELFPAY ==
--- NOTE | ~2024-10-26 | XR_ITS ---
EXAMINATION: XR ELBOW, RIGHT CLINICAL INFORMATION: right elbow pain, lateral epicondylitis COMPARISON: None available. TECHNIQUE: AP, lateral, and oblique views of the right elbow. FINDINGS: No acute fracture, dislocation, or suspicious bone lesion. There is normal alignment. 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 There is mild spurring of the coronoid process. There is a moderate size olecranon spur present. Small condylar spurs are present bilaterally. There is no evidence of joint effusion. The soft tissues appear normal. XR/XR elbow RT min 3V IMPRESSION: 1. No acute bony abnormalities or joint effusion in the right elbow. 2. 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 3. Minimal spurring of the epicondyles bilaterally. 4. Moderate size olecranon spur. Electronically signed by: Fermin Allred MD 10/26/2024 08:23 AM EDT
--- OUTSIDE RECORDS SUMMARY | 2024-10-26 07:22 | XMS_ITS | Encounter Summary ---
Author Organization [employer] Address [address] [place] [address] 7 [place] [address] Care Team Providers Care Binding Machine Operator Name Role Phone Alysa Blair MD Primary Care Provider [phone] Shay Méndez PharmD Unavailable [phone] Reason for Referral * Consultation (Routine) - Pending Review Specialty Diagnoses / Procedures Referred By Contzayra t Referred To Contact Pharmacy Diagnoses Hypertension, unspecified type Alysa Blair MD [address] [place] [phone] Phone: tel: fax: Referral ID Status Reason Start Date Expiration Date Visits Requested Visits Authorized [id number] Pending Review Consult and Treat 03/11/2024 03/11/2025 6 6 Encounter Details Date Type Department Care Team (Late st Contact Info) Description 03/11/2024 Orders Only [facility] [address] [place] [address] [phone] Alysa Blair MD [address] [place], [place] [phone] Hypertension, unspecified type (Primary Dx) Social History [...] Care Team (Late st Contact Info) Description 02/17/2025 3:00 PM EST Telemedicine [facility] [address] [place] [address] Shay Méndez PharmD [address] [place] [address] Scheduled Referrals Name Type Priority Associated Diagnoses Orde r Schedule Referral to Pharmacy CDTM Outpatient Referral Routine Hypertension, unspecified type Ordered: 03/11/2024 documented as of this encounter Goals Goal Patient Goal Type Associated Problems Recent Progress Patient-Stated? Author Blood Pressure < 140/90 Blood Pressure 128/88( 025 4:22 PM EDT) No Shay Méndez PharmD documented as of this encounter Visit Diagnoses Diagnosis Hypertension, unspecified type- Primary documented in this encounter Additional Health Concerns Assessment Noted Time PHQ-9 Depression Total Score: 0 10/07/19 23 3:27 PM EDT documented as of this encounter Care Teams Binding Machine Operator Relationship Specialty Start Date End Date Alysa Blair MD [address] [place] [address] PCP - General Family Medicine 02/20/20 Shay Méndez, EmmanuelD [address] [place] [address] [place] [address] Pharmacist Internal Medicine 11/26/22 documented as of this encounter
--- OUTSIDE RECORDS SUMMARY | 2024-10-26 07:22 | XMS_ITS | Clinical Summary ---
Author Organization [facility] Address [address] [place] [address] Phone Care Team Providers Care Contract Admin Name Role Phone Alysa Blair MD Primary Care Provider [phone] Medications No known medications Active Problems No known active problems Medical History Medical History Date Comments Hypertension [...] 92 02/08/2024 5:28 PM EST Temperature 36.5 C (97.7 F) 02/08/2024 5:28 PM EST Respiratory Rate 16 02/08/2024 5:28 PM EST Oxygen Saturation 98% 02/08/2024 5:28 PM EST Inhaled Oxygen Concentration - - Weight 88 kg (194 lb) 02/08/2024 5:28 PM EST Height 172.7 cm (5' 8 ) 02/08/2024 5:28 PM EST Body Mass Index 29.5 02/08/2024 5:28 PM EST Plan of Treatment Health Maintenance Due Date Last Done Comments Pneumococcal Vaccine: 50+ Years (1 of 1 - PCV) 2014 Colorectal Cancer Screening: Colonoscopy 02/04/2022 HIV Screening 02/04/2022 Hepatitis C Screening 02/04/2022 Social Influencers of Health Screening 02/04/2022 COVID-19 Vaccine ( season) 2023 02/07/2022, 03/12/2021, 07/25/2020, Additional history exists Hypertension/CHF/CAD Annual BMP Blood Test 02/09/2024 Depression Screening 03/09/2024 Influenza Vaccine (#1) 2024 , 02/07/2022, 01/12/2020, Additional history exists Cholesterol Screening (Lipid Panel) 10/08/2027 10/07/2022 DTaP,Tdap,and Td Vaccines (3 - Td or Tdap) 11/05/2033 11/06/2023, 02/03/2012 RSV Immunization Adult Patients (1 - 1-dose 75+ series) 10/04/2039 Zoster Vaccines Completed 03/27/2020, 01/26/2020 HIB Vaccines Aged Out No longer eligi ble based on patient's age to complete this topic HPV Vaccines Aged Out No longer eligi ble based on patient's age to complete this topic Hepatitis A Vaccines Aged Out No long er eligible based on patient's age to complete this topic Hepatitis B Vaccines Aged Out No long er eligible [...] age to complete this topic Meningococcal B Vaccine Aged Out No l onger eligible based on patient's age to complete this topic RSV Immunization Patients Under 20 months Aged Out No longer eligible based on patient's age to complete this topic Varicella Vaccines Aged Out No longer eligible based on patient's age to complete this topic Insurance [facility] [employer] Care Teams Contract Admin Relationship Specialty Start Date End Date Alysa Blair MD [address] [place] [phone] PCP - General Family Medicine 02/08/24
== END 2024-10-26 07:20 | disposition home or self-care (01) ==
LOC: HO.XRAY 07:19
PROVIDERS: PCP Family Medicine; Visit Provider Family Medicine
DX: M25.521 Pain in right elbow (principal)
CPT/HCPCS: 73080

== ENCOUNTER → 2024-10-26 07:25 | Outpatient (BNV) | payer OTHER, SELFPAY | PROVIDERS: PCP Family Medicine; Visit Provider Radiology Diagnostic Radiology | DX: M19.021 Primary osteoarthritis, right elbow (principal) | CPT/HCPCS: 73080 ==

== ENCOUNTER 2024-11-02 07:06 | Outpatient (REF) | payer OTHER, SELFPAY ==
--- OUTSIDE RECORDS SUMMARY | 2024-11-02 07:09 | XMS_ITS | Encounter Summary ---
Author Organization [employer] Address [address] [place] [address] 7 [place] [address] Care Team Providers Care Straw Boss Name Role Phone Alysa Blair MD Primary Care Provider [phone] Shay Méndez PharmD Unavailable [phone] Reason for Referral * Consultation (Routine) - Pending Review Specialty Diagnoses / Procedures Referred By Contzayra t Referred To Contact Pharmacy Diagnoses Hypertension, unspecified type Alysa Blair MD [address] [place] [phone] Phone: tel: fax: Referral ID Status Reason Start Date Expiration Date Visits Requested Visits Authorized [id number] Pending Review Consult and Treat 03/11/2024 03/11/2025 6 6 Encounter Details Date Type Department Care Team (Late st Contact Info) Description 03/11/2024 Orders Only [facility] [address] [place] [phone] Alysa Blair MD [address] [place], [place] [phone] Hypertension, unspecified type (Primary Dx) Social History [...] Info) Description 02/17/2025 3:00 PM EST Telemedicine [facility] [address] [place] [address] Shay Méndez PharmD [address] [place] [address] Scheduled Referrals Name Type Priority Associated Diagnoses [...] documented as of this encounter Care Teams Straw Boss Relationship Specialty Start Date End Date Alysa Blair MD [address] [place] [address] PCP - General Family Medicine 02/20/20 Shay Méndez, EmmanuelD [address] [place] [address] [place] [address] Pharmacist Internal Medicine 11/26/22 documented as of this encounter
--- OUTSIDE RECORDS SUMMARY | 2024-11-02 07:09 | XMS_ITS | Encounter Summary ---
Author Organization [employer] Address [address] [place] [address] [address] [place] [address] Care Team Providers Care Piece Marker Small Arms Name Role Phone Alysa Blair MD Primary Care Provider [phone] Shay Méndez PharmD Unavailable [phone] Reason for Visit * Reason Comments Med Refill Encounter Details Date Type Department Care Team (Late st Contact Info) Description 12/03/2022 Refill [facility] [address] [place] [address] [phone] Alysa Blair MD [address] [place] [address] Social History Tobacco Use Types Packs/Day Years [...] Info) Description 02/17/2025 3:00 PM EST Telemedicine [facility] [address] [place] [address] Shay Méndez, PharmD [address] [place] [address] documented as of this encounter Goals Goal Patient Goal Type Associated Problems Recent Progress Patient-Stated? Author Blood Pressure < 140/90 Blood Pressure 128/88( 025 4:22 PM EDT) No Shay Méndez, PharmD documented as of this encounter Visit Diagnoses Not on filedocumented in this encounter Additional Health Concerns Assessment Noted Time PHQ-9 Depression Total Score: 0 10/07/19 23 3:27 PM EDT documented as of this encounter Care Teams Piece Marker Small Arms Relationship Specialty Start Date End Date Alysa Blair MD [address] [place] [address] PCP - General Family Medicine 02/20/20 Shay Méndez, PharmD [address] [place] [address] Pharmacist Internal Medicine 11/26/22 documented as of this encounter
--- OUTSIDE RECORDS SUMMARY | 2024-11-02 07:09 | XMS_ITS | Clinical Summary ---
Author Organization [employer] Address [address] [place] [address] 7[address] [place] [address] Care Team Providers Care Talent Coordinator Name Role Phone Alysa Blair MD Primary Care Provider [phone] Shay Méndez PharmD Unavailable [phone] Allergies No known active allergies Medications albuterol 108 (90 Base) MCG/ACT inhaler Inhale 2 puffs every 4 (four) hours if needed for wheezing or shortness of breath. 18 g 1 08/23/19 23 Active Spacer/Aero-Holdi ng Chambers (OptiChamber Agnes) misc 1 each every 4 (four) hours if needed (asthma). 1 each 08/23/19 23 Active tamsulosin (Flomax) 0.4 MG 24 hr capsule Take 0.4 mg by mouth at bedtime. 09/18/19 23 Active atorvastatin (Lipitor) 10 MG tabletIndications :Hyperlipidemia, unspecified hyperlipidemia type TAKE 1 TABLET(10 MG) BY MOUTH IN THE MORNING 30 tablet 08/11/19 24 Active diclofenac (Cataflam) 50 MG tablet Take 1 tablet (50 mg) by mouth every 8 (eight) hours if needed (pain). 90 tablet 1 03/29/19 25 2025 Active losartan-hydroCHL OROthiazide (Hyzaar) 100-12.5 MG tabletIndications :Hypertension, unspecified type Take 1 tablet by mouth Once per day. 90 tablet 1 08/11/19 25 Active ibuprofen 800 MG tablet Take 1 tablet (800 mg) by mouth every 8 (eight) hours if needed for mild pain, moderate pain or fever. 90 tablet 10/26/19 25 2024 Active ibuprofen 800 MG tablet Take 1 tablet (800 mg) by mouth 3 times daily. 90 tablet 10/26/192024 Discontinued(R eorder (will not trigger notification to Pharmacy)) Active Problems Problem Noted Date Diagnosed Date BPH (benign prostatic hyperplasia) 10/25/2024 Assessment & Plan (10/25/2024 10:11 AM EDT): - following with [facility] - continue tamsulosin 0.4 mg daily Chronic pain of right knee 08/01/2024 Trigger ring finger of left hand 04/02/2024 Assessment & Plan (10/28/2024 12:07 AM EDT): - seen by [facility] Ortho provider in Apr 2024, Received steroid injection Assessment & Plan (10/25/2024 10:07 AM EDT): >>ASSESSMENT AND PLAN FOR FINGER PAIN, LEFT WRITTEN ON 04/02/2024 7:00 PM BY ALYSA BLAIR MD - diclofenac prn Back pain 04/02/2024 Assessment & Plan (07/26/2024 1:21 PM EDT): - back execise - judicious use of diclofenac Assessment & Plan (04/02/2024 7:01 PM EST): - back execise - judicious use of diclofenac Cardiovascular risk factor 04/02/2024 Assessment & Plan (07/26/2024 1:20 PM EDT): - evaluated by [facility] science and operations officer, last seen in September 2023 - normal nuclear stress test in 2019 and echo in 2021 - given reassurance that patient does not have CAD - continue working on lifestyle modifications - 10-year ASCVD risk is > 10%. - Consider intensifying statin and discuss about aspirin. - Consider coronary calcium score Assessment & Plan (04/02/2024 7:06 PM EST): - evaluated by [facility] science and operations officer, last seen in September 2023 - normal nuclear stress test in 2018 and echo in 2021 - given reassurance that patient does not have CAD - continue working on lifestyle modifications - 10-year ASCVD risk is > 10%. - Consider intensifying statin and discuss about aspirin. - Consider coronary calcium score Onychomycosis 02/03/2023 Assessment & Plan (07/26/2024 1:21 PM EDT): - prescribed terbinafine PO, but pt was unable to get it - s/p ciclopirox treatment, patient reports some improvement but not complete resolution - 02/03/23 fungal culture grew 3 different fungal species - dicussed about terbinafine PO, however agreed to complete evaluation for chest pain since he has to hold statin while taking terbinafine Assessment & Plan (07/21/2023 4:57 PM EDT): [...] 2020, treated with azithromycin - evaluated by physician vice president in 2020 Post-COVID chronic dyspnea 10/13/2022 Assessment & Plan (07/21/2023 4:17 PM EDT): - COVID in May 2020 - pneumonia in June 2020 - PFT in Oct 2020 showed no obstructive airway disease, but showed restrictive airway disease, significantly decreased FVC - presumptive asthma exacerbation in Jan 2022, treated with prednisone - 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 - will refer back to physician vice president JANA (obstructive sleep apnea) 10/06/2022 Assessment & Plan (07/26/2024 1:22 PM EDT): - following with sleep medicine clinic - continue Auto-PAP 6-16 cm H2O Assessment & Plan (03/29/2024 4:48 PM EST): [...] rhinitis 10/12/2014 Hyperlipidemia 05/11/2012 Assessment & Plan (07/26/2024 1:20 PM EDT): - last lipid profile in Feb 2024 - current medication: Atorvastatin 10 mg at bedtime, consider intensifying - continue working on lifestyle modifications Assessment & Plan (04/02/2024 7:00 PM EST): [...] Impaired fasting glucose 11/20/2011 Assessment & Plan (07/26/2024 1:21 PM EDT): - Family Hx DM2 - annual screening - A1C 5.4% - lifestyle modifications Assessment & Plan (03/29/2024 4:49 PM EST): [...] lifestyle modifications Hypertension 11/18/2011 Assessment & Plan (10/25/2024 10:01 AM EDT): - Goal BP < 130/80 per ACC/AHA gudieline - BP elevated today - Co-managed by our pharmacist, Shay Méndez, last seen in Feb 2024 - Continue working on lifestyle modifications. - Continue checking BP at home - Continue losartan - hctz 100 - 12.5 mg daily - Continue Auto-PAP - follow-up in 3 months or sooner prn Assessment & Plan (07/26/2024 1:21 PM EDT): - Goal BP <140/90 per [...] months or sooner prn Assessment & Plan (04/02/2024 6:58 PM EST): [...] elevated today - Co-managed by our pharmacist, piper Worley seen on 01/21/23 - Continue working on [...] Encounters Date Type Department Care Team Description 10/26/2024 Results Follow-Up [address] [address] Alysa Blair MD XR Elbow 3+ Views Right 10/25/2024 3:30 PM EDT Office Visit [address] [address] Alysa Blair MD Hypertension, unspecified type (Primary Dx); Trigger ring finger of left hand; Benign prostatic hyperplasia with lower urinary tract symptoms, symptom details unspecified; Right elbow pain 10/25/2024 Travel 09/22/[address] [address] Alysa Blair MD Med Refill 09/20/[address] [address] Alysa Blair MD october09/16/2024 3:30 PM EDT Telemedicine [address] [place] [place] [address] Shay Méndez, Jacques Hypertension, unspecified type (Primary Dx) 08/10/2024 Refill [facility] [address] [place] [address] Alysa Blair MD Hypertension, unspecified type from Last 3 Months Immunizations Immunization Administration Dates Next Due Influenza injectable quadriv [...] housing situation today? I have steve oliveros 07/26/[address] you li ve. Do you have problems with any of the following? None of the above 07/26/2024 Food Insecurity Answer Date Recorded Within the [...] Sign Reading Time Taken Comments Blood Pressure 128/88 10/25/2024 4:22 PM EDT Pulse 83 10/25/2024 3:44 PM EDT Temperature 36.2 C (97.1 F) 10/25/2024 3:44 PM EDT Respiratory Rate 22 10/25/2024 3:44 PM EDT Oxygen Saturation 97% 10/25/2024 3:44 PM EDT Inhaled Oxygen Concentration - - Weight 89.2 kg (196 lb 9.6 oz) 10/25/2024 3:44 P M EDT Height 172.7 cm (5' 8 ) 10/25/2024 3:44 PM EDT Body Mass Index 29.89 10/25/2024 3:44 PM EDT Plan of Treatment Upcoming Encounters Date Type Department Care Team (Late st Contact Info) Description 02/17/2025 3:00 PM EST Telemedicine [facility] [address] [place] [address] Shay Méndez, PharmD [address] [place] [address] Health Maintenance Due Date Last Done Comments CT Colonography 1964 FIT DNA/Cologuard 1965 FIT 1965 FOBT 1965 HIV Screening 1965 Sigmoidoscopy 1965 Hepatitis C Screening 1982 Pneumococcal Vaccine: 50+ Years (1 of 1 - PCV) 2014 COVID-19 Vaccine ( season) 2023 02/07/2022, 03/12/2021, 07/25/2020, Additional history exists Influenza Vaccine (#1) 2024 , 12/02/2022, 02/07/2022, Additional history exists Alcohol/Substance Use Screening 03/29/2025 03/29/2024 SDOH Screening 03/29/2025 03/29/2024 Colonoscopy 04/05/2025 04/05/2015 Colorectal Cancer Screening 04/05/2025 Disability Screening 07/26/2025 07/26/2024 Tobacco Screening 08/01/2025 08/01/2024 Lipid Panel 02/15/2029 02/16/2024, 08/0 03/2022, 04/26/2021 DTaP/Tdap/Td Vaccines (3 - Td or Tdap) 11/05/2033 11/06/2023, 02/03/2012 RSV Patients and Patients Aged 60 years or older (1 - 1-dose 75+ series) 10/04/2039 Zoster Vaccines Completed 03/27/2020, 01/26/2020 Depression Screening Discontinued 10/06/2022, 10/07/19 23 HIB Vaccines Aged Out No longer eligi [...] 025 4:22 PM EDT) No Shay Méndez, EmmanuelD Procedures Procedure Name Priority Date/Time Associated Diagnosis Comments XR ELBOW 3+ VIEWS RIGHT Routine 10/26/2024 7:30 AM EDT Right elbow pain LIPID PANEL, STANDARD Routine 02/16/2024 7:09 AM EST HM COLONOSCOPY Routine 04/05/2015 from Last 3 Months or Most Recently Relevant to Health Maintenance Results * XR Elbow 3+ Views Right (10/26/2024 7:30 AM EDT) Anatomical Region Laterality Modality Upper Extremities, Elbow Right Radiogr aphic Imaging 10/26/2024 7:30 AM EDT Narrative 10/26/2024 8:26 AM EDT [place] [address] XRay Report Signed Patient: Arnaldo Nicholas MR#: [id number] : 1965 Acct:[id number] Age/Sex: 59 / M ADM Date: 10/26/24 Loc: [facility] Attending Dr: Alysa Blair MD Ordering Physician: Alysa Blair MD Date of Service: 10/26/24 Procedure(s): XR elbow RT min 3V Accession Number(s): [id number] cc: Alysa Blair MD EXAMINATION: XR ELBOW, RIGHT CLINICAL INFORMATION: right elbow pain, lateral epicondylitis COMPARISON: None available. TECHNIQUE: AP, lateral, and oblique views of the right elbow. FINDINGS: No acute fracture, dislocation, or suspicious bone lesion. There is normal alignment. 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 There is mild spurring of the coronoid process. There is a moderate size olecranon spur present. Small condylar spurs are present bilaterally. There is no evidence of joint effusion. The soft tissues appear normal. XR/XR elbow RT min 3V IMPRESSION: 1. No acute bony abnormalities or joint effusion in the right elbow. 2. 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 3. Minimal spurring of the epicondyles bilaterally. 4. Moderate size olecranon spur. Electronically signed by: Fermin Allred MD 10/26/2024 08:23 AM EDT Dictated By: Fermin Allred MD Signed By: <Electronically signed by Fermin Allred MD in OV> 10/26/24 0823 DD/ 0730 TD/TT: 10/26/24 0740 Section Chief: Procedure Note Donotuseinterpreter, Image - 10/26/[address] [address] XRay Report Signed Patient: Arnaldo Nicholas HMR#: [id number] : 1965Acct:[id number] Age/Sex: 59 / MADM Date: 10/26/24 Loc: [facility].XRAY Attending Dr: Alysa Blair MD Ordering Physician: Alysa Blair MD Date of Service: 10/26/24 Procedure(s): XR elbow RT min 3V Accession Number(s): [id number] cc: Alysa Blair MD EXAMINATION: XR ELBOW, RIGHT CLINICAL INFORMATION: right elbow pain, lateral epicondylitis COMPARISON: None available. TECHNIQUE: AP, lateral, and oblique views of the right elbow. FINDINGS: No acute fracture, dislocation, or suspicious bone lesion. There is normal alignment. 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 There is mild spurring of the coronoid process. There is a moderate size olecranon spur present. Small condylar spurs are present bilaterally. There is no evidence of joint effusion. The soft tissues appear normal. XR/XR elbow RT min 3V IMPRESSION: 1. No acute bony abnormalities or joint effusion in the right elbow. 2. 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 3. Minimal spurring of the epicondyles bilaterally. 4. Moderate size olecranon spur. Electronically signed by: Fermin Allred MD 10/26/2024 08:23 AM EDT Dictated By: Fermin Allred MD Signed By: <Electronically signed by Fermin Allred MD in OV> 10/26/24 0823 DD/ 0730 TD/TT: 10/26/24 0740 Section Chief: Alysa Blair MD IMG XR PROCEDURES Final Result * (ABNORMAL) Lipid Panel, Standard (02/16/2024 7:09 AM EST) Triglycerides 155(H) <150 mg/dL [facility] Comment:Desirable Triglyceri de: less than 150 mg/dLBorderline High Triglyceride 150-199 mg/dLHigh Triglyceride: 200-499 mg/dLVery High Triglyceride: greater than or equal to 5OO mg/dL Cholesterol 138 <200 mg/dL [facility] Comment:Desirable Cholestero l: less than 200 mg/dLBorderline High Cholesterol: 200-239 mg/dLHigh Cholesterol: greater than 239 mg/dL LDL Cholesterol Calculated 73 <100 mg/dL [facility] Comment:Desirable LDL: less than 100 mg/dLNear Optimal/Above Optimal LDL: 110- 129 mg/dLBorderline High LDL: 130-159 mg/dLHigh LDL: 160-189 mg/dLVery High LDL: greater than or equal to 190 mg/dL HDL Cholesterol 34(L) >40 mg/dL [facility] Comment:Desirable HDL: great er than 40 mg/dL Note: This HDL assay may give artificially low results in patients with liver disease. 02/16/2024 7:09 AM EST 02/16/2024 7:09 AM EST Alysa Blair MD LAB BLOOD ORDERABLES Final Resul t [facility] [address] [place] [phone] * Hm Colonoscopy (04/05/2015) Colonoscopy Normal Normal 04/05/2015 Historical Provider HEALTH MAINTENANCE Edited Result - Final from Last 3 Months or Most Recently Relevant to Health Maintenance Insurance [facility] [employer] [facility] 3 Care Teams Talent Coordinator Relationship Specialty Start Date End Date Alysa Blair MD [address] [place] [address] PCP - General Family Medicine 02/20/20 Shay Méndez, Jacques [address] [place] [address] Pharmacist Internal Medicine 11/26/22
--- OUTSIDE RECORDS SUMMARY | 2024-11-02 07:09 | XMS_ITS | Encounter Summary ---
Author Organization [employer] Address [address] [place] [address] 7[address] [place] [address] Care Team Providers Care Commanding Officer Homicide Squad Name Role Phone Alysa Blair MD Primary Care Provider [phone] Shay Méndez PharmD Unavailable [phone] Reason for Visit * Reason Comments Med Refill Encounter Details Date Type Department Care Team ([facility] st Contact Info) Description 09/28/2023 Refill [facility] [address] [place], [place] [phone] Shay Méndez, PharmD [address] [place] [address] Hypertension, unspecified type Social History Tobacco Use [...] the past 12 months, has t he [employer], gas, oil or water company threatened to [...] Info) Description 02/17/2025 3:00 PM EST Telemedicine [facility] [address] [place] [address] Shay Méndez, Jacques [address] [place] [address] documented as of this encounter Goals Goal [...] documented as of this encounter Care Teams Commanding Officer Homicide Squad Relationship Specialty Start Date End Date Alysa Blair MD [address] [place] [address] PCP - General Family Medicine 02/20/20 Shay Méndez, PharmD [address] [place] [address] Pharmacist Internal Medicine 11/26/22 documented as of this encounter
--- OUTSIDE RECORDS SUMMARY | 2024-11-02 07:09 | XMS_ITS | Clinical Summary ---
Author Organization [facility] Address [address] [place] [address] Phone Care Team Providers Care Processing Analyst Name Role Phone Alysa Blair MD Primary Care Provider [phone] Medications No known medications Active Problems No [...] patient's age to complete this topic Insurance [facility] PUBLIC [employer] Care Teams Processing Analyst Relationship Specialty Start Date End Date Alysa Blair MD [address] [place] [phone] PCP - General Family Medicine 02/08/24
--- OUTSIDE RECORDS SUMMARY | 2024-11-02 07:09 | XMS_ITS | Encounter Summary ---
Author Organization [employer] Address [address] [place] [address] [address] [place] [address] Care Team Providers Care Acid Pumper Name Role Phone Alysa Blair MD Primary Care Provider [phone] Shay Méndez PharmD Unavailable [phone] Reason for Visit * Reason Comments Med Refill Encounter Details Date Type Department Care Team (Late st Contact Info) Description 12/03/2022 Refill [facility] [address] [place] [phone] Alysa Blair MD [address] [place] [address] Social History Tobacco Use Types Packs/Day Years [...] Info) Description 02/17/2025 3:00 PM EST Telemedicine [facility] [address] [place] [address] Shay Méndez, PharmD [address] [place] [address] documented as of this encounter Goals Goal [...] documented as of this encounter Care Teams Acid Pumper Relationship Specialty Start Date End Date Alysa Blair MD [address] [place] [address] PCP - General Family Medicine 02/20/20 Shay Méndez, PharmD [address] [place] [address] Pharmacist Internal Medicine 11/26/22 documented as of this encounter
--- OUTSIDE RECORDS SUMMARY | 2024-11-02 07:09 | XMS_ITS | Encounter Summary ---
Author Organization [employer] Address [address] [place] [address] 7t [place] [address] Care Team Providers Care Rehab Physician Name Role Phone Alysa Blair MD Primary Care Provider [phone] Shay Méndez PharmD Unavailable [phone] Reason for Visit * Reason Comments Med Refill Encounter Details Date Type Department Care Team ([facility] st Contact Info) Description 11/02/2023 Refill [facility] [address] [place], [place] [phone] Shay Méndez, PharmD [address] [place] [address] Hypertension, unspecified type Social History Tobacco Use [...] the past 12 months, has t he [employer], gas, oil or water company threatened to [...] Info) Description 02/17/2025 3:00 PM EST Telemedicine [facility] [address] [place] [address] Shay Méndez, Jacques [address] [place] [address] documented as of this encounter Goals Goal [...] documented as of this encounter Care Teams Rehab Physician Relationship Specialty Start Date End Date Alysa Blair MD [address] [place] [address] PCP - General Family Medicine 02/20/20 Shay Méndez, PharmD [address] [place] [address] Pharmacist Internal Medicine 11/26/22 documented as of this encounter
[2024-11-02 07:49] LABS: Hemoglobin A1C 125.9819 umol/L; Total Hemoglobin (HGBA1C) 3615.0734 umol/L
[2024-11-02 08:20] LABS: Alanine Aminotransferase 25 U/L (0-40); Albumin Level 4.0 g/dL (3.5-5.0); Alkaline Phosphatase 54 U/L (39-117); Anion Gap 11 (12-20); Aspartate Amino Transferase 20 U/L (5-37); Blood Urea Nitrogen 15 mg/dL (9-16); Calcium 8.9 mg/dL (8.4-10.2); Carbon Dioxide 28 mmol/L (22-29); Chloride 105 mmol/L (96-108); Cholesterol 181 mg/dL (<200); Estimated Glomerular Filt Rate > 60; HDL Cholesterol 33 mg/dL (>40); Potassium 4.2 mmol/L (3.3-5.1); Sodium 140 mmol/L (135-145); Total Protein 6.8 g/dL (6.5-8.0); Triglycerides 139 mg/dL (<150)
[2024-11-02 10:32] LABS: Reflex LDLD? No
== END 2024-11-02 07:07 | disposition home or self-care (01) ==
LOC: HO.LAB 07:06
PROVIDERS: PCP Family Medicine; Visit Provider Family Medicine
DX: I10 Essential (primary) hypertension (principal)
CPT/HCPCS: 36415; 80053; 80061; 83036

== ENCOUNTER 2024-12-29 14:55 | Outpatient (AMB) | payer OTHER, SELFPAY ==
--- NOTE | 2024-12-29 15:01 | A.OFFVIS_ITS ---
Vital Signs 12/29/24 15:03 Height 5 ft 8 in Weight 195 lb BMI 29.6 Intake Visit Reasons: New prob- Rt elbow pain Intake Note: Arnaldo is a 59 year old right hand dominant male who presents today for an evaluation of right elbow pain. States pain started about 3 months ago, no injury, pain is on his medial aspect of elbow, radiating pain from hand to elbow. Pain is triggered with lifting light or heavy items. Denies numbness or tingling in hands. [employer] Body Maker Name: Fransisca VALLE/BRIT Allergies No Known Allergies (No Known Allergies*) Allergy (Verified 12/29/24 15:05) HPI HPI New prob- Rt elbow pain: Details: 59 yo male presents to the office today for right elbow pain x3 months. He denies injury. States he works with his hands and is performing a lot of lofting and repetitive motion. He has pain along the lateral aspect of the elbow . He denies numbness or tingling. 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 No erythema or swelling. ROM full without pain. Tenderness over the lateral epicondyle and pain with resisted wrist extension. NVI. Assessment & Plan Assessment & Plan (1) History of lateral epicondylitis of right elbow: Code(s): Z87.39 - Personal history of other diseases of the musculoskeletal system and connective tissue Category: Medical Plan: We discussed options which include OT, NSAIDs and injections. He will defer on the injection today and proceed with OT and NSAIDs. I also encouraged modification of activity as necessary. He was also fit for an elbow band. If symptoms persist he will contact our office to discuss injection, otherwise f.u prn. Orders: Orders OT Evaluation and Treatment 12/29/24 Z87.39 - Personal history of other diseases of the musculoskeletal system and connective tissue Medications: New naproxen 500 mg PO BID 60 tabs 3RF 30 days S93.409A - Sprain of unspecified ligament of unspecified ankle, initial encounter Coding Level of Care Code Est Pt Level 3 (66675) Complex EM visit Add On G2211 Diagnoses History of lateral epicondylitis of right elbow Z87.39
[2024-12-29 15:03] VITALS: BMI 29.6
--- OUTSIDE RECORDS SUMMARY | 2024-12-29 18:46 | XMS_ITS | Encounter Summary ---
Author Organization [employer] Address [address] [place] [address] 7 [place] [address] Care Team Providers Care Attendant Lodging Facilities Name Role Phone Alysa Blair MD Primary Care Provider [phone] Shay Méndez PharmD Unavailable [phone] Reason for Referral * Consultation (Routine) - Pending Review Specialty Diagnoses / Procedures Referred By Contzayra t Referred To Contact Pharmacy Diagnoses Hypertension, unspecified type Alysa Blair MD [address] [place] [address] Phone: tel: fax: Referral ID Status Reason Start Date Expiration Date Visits Requested Visits Authorized [id number] Pending Review Consult and Treat 03/11/2024 03/11/2025 6 6 Encounter Details Date Type Department Care Team (Late st Contact Info) Description 03/11/2024 Orders Only [facility] [address] [place] [phone] Alysa Blair MD [address] [place], [place] [phone] Hypertension, unspecified type (Primary Dx) Social History [...] Description 02/17/2025 3:00 PM EST Telemedicine [facility] 230 [place] [address] Shay Méndez PharmD [address] [place] [address] Scheduled Referrals Name Type Priority Associated Diagnoses [...] documented as of this encounter Care Teams Attendant Lodging Facilities Relationship Specialty Start Date End Date Alysa Blair MD [address] [place] [address] PCP - General Family Medicine 02/20/20 Shay Méndez, EmmanuelD [address] [place] [address] [place] [address] Pharmacist Internal Medicine 11/26/22 documented as of this encounter
--- OUTSIDE RECORDS SUMMARY | 2024-12-29 18:46 | XMS_ITS | Encounter Summary ---
Author Organization [email or web address] Address [address] [place] [address] 7t [place] [address] Care Team Providers Care Window Shade Ring Coverer Name Role Phone Alysa Blair MD Primary Care Provider [phone] Shay Méndez PharmD Unavailable [phone] Reason for Visit * Reason Comments Med Refill Encounter Details Date Type Department Care Team ([facility] st Contact Info) Description 12/24/2024 Refill [facility] [address] [place], [place] [phone] Alysa Blair MD 230 [place], [place] [phone] Social History Tobacco Use Types Packs/Day Years [...] Info) Description 02/17/2025 3:00 PM EST Telemedicine [facility] [address] [place], [place] [phone] Shay Méndez, PharmD [address] [place] [address] documented as of this encounter Goals Goal [...] documented as of this encounter Care Teams Window Shade Ring Coverer Relationship Specialty Start Date End Date Alysa Blair MD [address] [place] [address] PCP - General Family Medicine 02/20/20 Shay Méndez, PharmD [address] [place] [address] [phone] Pharmacist Internal Medicine 11/26/22 documented as of this encounter
--- OUTSIDE RECORDS SUMMARY | 2024-12-29 18:47 | XMS_ITS | Clinical Summary ---
Author Organization [employer] Address [address] [place] [address] 7t [place] [address] Care Team Providers Care Mine Engineer Name Role Phone Jael Blair MD Primary Care Provider [phone] Shay Méndez PharmD Unavailable [phone] Allergies No known active allergies Medications albuterol [...] needed (pain). 90 tablet 1 03/29/19 25 026 Active losartan-hydroCHL OROthiazide (Hyzaar) 100-12.5 MG tabletIndications :Hypertension, unspecified type Take 1 tablet by mouth Once per day. 90 tablet 1 08/11/19 25 Active ibuprofen 800 MG tablet TAKE 1 TABLET BY MOUTH EVERY 8 HOURS NEEDED FOR PAIN 90 tablet 12/27/19 25 Active ibuprofen 800 MG tablet Take 1 tablet (800 mg) by mouth every 8 (eight) hours if needed for mild pain, moderate pain or fever. 90 tablet 10/26/19 025 Discontinued Active Problems Problem Noted Date Diagnosed Date Right elbow pain 11/04/2024 Assessment & Plan (11/04/2024 10:34 AM EDT): - likely epicondylitis - refer to orthopedist - activity modification, ice, appropriate rest, and judicious use of NSAIDs BPH (benign prostatic hyperplasia) 10/25/2024 Assessment & Plan (10/25/2024 10:11 AM EDT): - following with [facility] - continue tamsulosin 0.4 mg daily Chronic pain of right knee 08/01/2024 Trigger ring finger of left hand 04/02/2024 Assessment & Plan (10/28/2024 12:07 AM EDT): - seen by [facility]o provider in Apr 2024, Received steroid injection Assessment & Plan (10/25/2024 10:07 AM EDT): >>ASSESSMENT AND PLAN FOR FINGER PAIN, LEFT WRITTEN ON 04/02/2024 7:00 PM BY JAEL LBAIR MD - diclofenac prn Back pain 04/02/2024 Assessment & Plan (07/26/2024 1:21 PM EDT): - back execise - judicious use of diclofenac Assessment & Plan (04/02/2024 7:01 PM EST): - back execise - judicious use of diclofenac Cardiovascular risk factor 04/02/2024 Assessment & Plan (07/26/2024 1:20 PM EDT): - evaluated by [facility] cyber workforce developer and manager, last seen in September 2023 - normal nuclear stress test in 2018 and echo in 2021 - given reassurance that patient does not have CAD - continue working on lifestyle modifications - 10-year ASCVD risk is > 10%. - Consider intensifying statin and discuss about aspirin. 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 - Continue checking BP at home - Continue losartan - hctz 100 - 12.5 mg daily - Continue Auto-PAP Assessment & Plan (07/26/2024 1:21 PM EDT): [...] Encounters Date Type Department Care Team Description 12/24/2024 Refill [facility] [address] [place] [address] Jael Blair MD 11/23/2024 Telephone [facility] [address] [place] [address] Jael Blair MD january10/26/2024 Results Follow-Up [facility] [address] [place], [place] [phone] Jael Blair MD XR Elbow 3+ Views Right 10/25/2024 3:30 PM EDT Office Visit [facility] [address] [place] [address] Jael Blair MD Hypertension, unspecified type (Primary Dx); Trigger ring finger of left hand; Benign prostatic hyperplasia with lower urinary tract symptoms, symptom details unspecified; Right elbow pain 10/25/2024 Travel from Last 3 Months Immunizations Immunization Administration [...] Info) Description 02/17/2025 3:00 PM EST Telemedicine [facility] [address] [place] [address] Shay Méndez, PharmD [address] [place] [address] Health Maintenance Due Date Last Done Comments CT Colonography 1965 FIT DNA/Cologuard 1965 FIT 1965 FOBT 1965 HIV Screening 1965 Sigmoidoscopy 1965 Hepatitis C Screening 1982 Pneumococcal Vaccine: 50+ Years (1 of 1 - PCV) 2014 COVID-19 Vaccine ( season) 2024 02/07/2022, 03/12/2021, 07/25/2020, Additional history exists Influenza Vaccine (#1) 2024 , 12/02/2022, 02/07/2022, Additional history exists Alcohol/Substance Use Screening 03/29/2025 03/29/2024 SDOH Screening 03/29/2025 03/29/2024 Colonoscopy 04/05/2025 04/05/2015 Colorectal Cancer Screening 04/05/2025 Disability Screening 07/26/2025 07/26/2024 Tobacco Screening 08/01/2025 08/01/2024 Lipid Panel 11/02/2029 11/02/2024, 02/06, 10/07/2022, Additional history exists DTaP/Tdap/Td Vaccines (3 - Td or Tdap) [...] Name Priority Date/Time Associated Diagnosis Comments LIPID PANEL WITH REFLEX TO DIRECT LDL Routine 11/02/2024 7:28 AM EDT Hypertension, unspecified type COMPREHENSIVE METABOLIC PANEL Routine 11/02/2024 7:28 AM EDT Hypertension, unspecified type HEMOGLOBIN A1C Routine 11/02/2024 7:28 AM EDT Hypertension, unspecified type XR ELBOW 3+ VIEWS RIGHT Routine 10/26/2024 7:30 AM EDT Right elbow pain COLONOSCOPY Routine 04/05/2015 from Last 3 Months or Most Recently Relevant to Health Maintenance Results * (ABNORMAL) Lipid Panel with Reflex to Direct LDL (11/02/2024 7:28 AM EDT) Triglycerides 139 <150 mg/dL [facility] Comment:Desirable Triglyceri de: less than 150 mg/dLBorderline High Triglyceride 150-199 mg/dLHigh Triglyceride: 200-499 mg/dLVery High Triglyceride: greater than or equal to 5OO mg/dL Cholesterol 181 <200 mg/dL [facility] Comment:Desirable Cholestero l: less than 200 mg/dLBorderline High Cholesterol: 200-239 mg/dLHigh Cholesterol: greater than 239 mg/dL LDL Cholesterol Calculated 121(H) <100 mg/dL [facility] Comment:Desirable LDL: less than 100 mg/dLNear Optimal/Above Optimal LDL: 110- 129 mg/dLBorderline High LDL: 130-159 mg/dLHigh LDL: 160-189 mg/dLVery High LDL: greater than or equal to 190 mg/dL HDL Cholesterol 33(L) >40 mg/dL [facility] Comment:Desirable HDL: great er than 40 mg/dL Note: This HDL assay may give artificially low results in patients with liver disease. Blood 11/02/2024 7:28 AM EDT 11/02/2024 7:28 AM EDT us Jael Blair MD LAB BLOOD ORDERABLES Final Resul t [facility] [address] [place] [phone] * Hemoglobin A1c (11/02/2024 7:28 AM EDT) Hemoglobin A1c 5.3 <6.0 % [facility] Comment:Hemoglobin A1C Refer ence Range Adults: 4.8 - 6.0 % Non diabetic: < 6.0 % Goal: < 7.0 %Additional Action Suggested: > 8.0 %Note: Hemoglobin A1c results are invalid for patients with abnormal amounts of HbF. Blood transfusions may impact the HbA1c concentration in the patient sample. Estimated Average Glucose 105 mg/dL [facility] Comment:eAG = Estimated ave rage glucose which is %A1C expressed asaverage glucose, using the formula of the W4E-FoakamsTolrbjv Glucose study (ADAG), Diabetes Care, Vol.31,#8,Oct. 2007 Blood Venous blood specimen / Unknown 11/02/2024 7:28 AM EDT 11/02/2024 7:28 AM EDT us Jael Blair MD LAB BLOOD ORDERABLES Final Resul t [facility] [address] [place] [address] [phone] * (ABNORMAL) Comprehensive Metabolic Panel (11/02/2024 7:28 AM EDT) Sodium 140 135 - 145 mmol/L [facility] Potassium 4.2 3.3 - 5.1 mmol/L [facility] Chloride 105 96 - 108 mmol/L [facility] Carbon Dioxide 28 22 - 29 mmol/L [facility] Anion Gap 11(L) 12 - 20 [facility] Urea Nitrogen (BUN) 15 9 - 16 mg/dL [facility] Creatinine, Serum 0.87 0.5 - 1.4 mg/dL [facility] Estimated Glomerular Filt Rate >60 [facility] Comment:Chronic Kidney Disea se: Estimated GFR < 60 mL/min/1.13y2Buggwa Kidney Disease: Estimated GFR < 15 mL/min/1.73m2 Glucose 98 60 - 115 mg/dL [facility] Calcium 8.9 8.4 - 10.2 mg/dL [facility] Bilirubin, Total 0.6 0.0 - 1.0 mg/dL [facility] Aspartate Amino Transferase 20 5 - 37 U/L [facility] Alanine Aminotransferase 25 0 - 40 U/L [facility] Total Protein 6.8 6.5 - 8.0 g/dL [facility] Albumin Level 4.0 3.5 - 5.0 g/dL [facility] Alkaline Phosphatase 54 39 - 117 U/L [facility] Blood Venous blood specimen / Unknown 11/02/2024 7:28 AM EDT 11/02/2024 7:28 AM EDT us Jael Blair MD LAB BLOOD ORDERABLES Final Resul t Performing Organization Address City/State/[facility] Co de Phone Number [facility] [address] [place] [phone] * XR Elbow 3+ Views Right (10/26/2024 7:30 AM EDT) Anatomical Region Laterality Modality Upper Extremities, Elbow Right Radiogr aphic Imaging 10/26/2024 7:30 AM EDT Narrative 10/26/2024 8:26 AM EDT [place] [address] XRay Report Signed Patient: Arnaldo Nicholas MR#: [id number] : 1965 Acct:[id number] Age/Sex: 59 / M ADM Date: 10/26/24 Loc: [facility] Attending Dr: Jael Blair MD Ordering Physician: Jael Blair MD Date of Service: 10/26/24 Procedure(s): XR elbow RT min 3V Accession Number(s): [id number] cc: Jael Blair MD EXAMINATION: XR ELBOW, RIGHT CLINICAL [...] Fermin Allred MD 10/26/2024 08:23 AM EDT RP Dictated By: Fermin Allred MD Signed By: <Electronically signed by Fermin Allred MD in OV> 10/26/24 08 DD/ 0730 TD/TT: 10/26/24 0740 Diagnostic Radiologist: Procedure Note Donotuseinterpreter, Image - 10/26/2024 [place] [address] XRay Report Signed Patient: Arnaldo Nicholas HMR#: [id number] : 1965Acct:[id number] Age/Sex: 59 / MADM Date: 10/26/24 Loc: [facility] Attending Dr: Jael Blair MD Ordering Physician: Jael Blair MD Date of Service: 10/26/24 Procedure(s): XR elbow RT min 3V Accession Number(s): [id number] cc: Jael Blair MD EXAMINATION: XR ELBOW, RIGHT CLINICAL [...] Fermin Allred MD 10/26/2024 08:23 AM EDT RP Dictated By: Fermin Allred MD Signed By: <Electronically signed by Fermin Allred MD in OV> 10/26/24 0823 DD/ 0730 TD/TT: 10/26/24 0740 Diagnostic Radiologist: Jael Blair MD IMG XR PROCEDURES Final Result * Colonoscopy (04/05/2015) Colonoscopy Normal Normal 04/05/2015 Historical Provider HEALTH MAINTENANCE Edited Result - Final from Last 3 Months or Most Recently Relevant to Health Maintenance Insurance [facility] [employer] [facility] 3 Care Teams Mine Engineer Relationship Specialty Start Date End Date Jael Blair MD [address] [place] [phone] PCP - General Family Medicine 02/20/20 Shay Méndez, PharmD [address] [place] [phone] Pharmacist Internal Medicine 11/26/22
--- OUTSIDE RECORDS SUMMARY | 2024-12-29 18:47 | XMS_ITS | Encounter Summary ---
Author Organization [employer] Address [address] [place] [address] 7t [place] [address] Care Team Providers Care Sales Force Developer Name Role Phone Alysa Blair MD Primary Care Provider [phone] Shay Méndez PharmD Unavailable [phone] Reason for Visit * Reason Comments Med Refill Encounter Details Date Type Department Care Team ([facility] st Contact Info) Description 11/02/2023 Refill [facility] [address] [place], [place] [phone] Shay Méndez, PharmD [address] [place] [address] Hypertension, unspecified type Social History Tobacco Use [...] the past 12 months, has t he [employer], gas, oil or water company threatened to [...] Info) Description 02/17/2025 3:00 PM EST Telemedicine [facility] [address] [place] [address] Shay Méndez, Jacques [address] [place] [address] documented as of this encounter Goals Goal [...] documented as of this encounter Care Teams Sales Force Developer Relationship Specialty Start Date End Date Alysa Blair MD [address] [place] [phone] PCP - General Family Medicine 02/20/20 Shay Méndez, PharmD [address] [place] [phone] Pharmacist Internal Medicine 11/26/22 documented as of this encounter
--- OUTSIDE RECORDS SUMMARY | 2024-12-29 18:47 | XMS_ITS | Encounter Summary ---
Author Organization [employer] Address [address] [place] [address] 7t [place] [address] Care Team Providers Care Compliance Quality Performance Analyst Name Role Phone Alysa Blair MD Primary Care Provider [phone] Shay Méndez PharmD Unavailable [phone] Reason for Visit * Reason Comments Med Refill Encounter Details Date Type Department Care Team ([facility] st Contact Info) Description 09/28/2023 Refill [facility] [address] [place], [place] [phone] Shay Méndez, PharmD [address] [place] [address] Hypertension, unspecified type Social History Tobacco Use [...] the past 12 months, has t he [employer], gas, oil or water company threatened to [...] Info) Description 02/17/2025 3:00 PM EST Telemedicine [facility] [address] [place] [address] Shay Méndez, Jacques [address] [place] [address] documented as of this encounter Goals Goal [...] documented as of this encounter Care Teams Compliance Quality Performance Analyst Relationship Specialty Start Date End Date Alysa Blair MD [address] [place] [address] PCP - General Family Medicine 02/20/20 Shay Méndez, PharmD [address] [place] [phone] Pharmacist Internal Medicine 11/26/22 documented as of this encounter
--- OUTSIDE RECORDS SUMMARY | 2024-12-29 18:47 | XMS_ITS | Encounter Summary ---
Author Organization [employer] Address [address] [place] [address] 7 [place] [address] Care Team Providers Care Heading Maker Name Role Phone Alysa Blair MD Primary Care Provider [phone] Shay Méndez PharmD Unavailable [phone] Reason for Visit * Reason Comments Med Refill Encounter Details Date Type Department Care Team (Late st Contact Info) Description 12/03/2022 Refill [facility] [address] [place] [address] [phone] Alysa Blair MD [address] [place] [address] Social History Tobacco Use Types Packs/Day Years [...] Description 02/17/2025 3:00 PM EST Telemedicine [facility] [address] [place] [address] Shay Méndez, PharmD [address] [place] [address] documented as of this encounter Goals Goal [...] documented as of this encounter Care Teams Heading Maker Relationship Specialty Start Date End Date Alysa Blair MD [address] [place] [address] PCP - General Family Medicine 02/20/20 Shay Méndez, PharmD [address] [place] [address] Pharmacist Internal Medicine 11/26/22 documented as of this encounter
--- OUTSIDE RECORDS SUMMARY | 2024-12-29 18:47 | XMS_ITS | Clinical Summary ---
Author Organization [facility] Address [address] [place] [address] Phone Care Team Providers Care Valet Runner Name Role Phone Alysa Blair MD Primary Care Provider [phone] Medications No known medications Active Problems No [...] Health Maintenance Due Date Last Done Comments Colorectal Cancer Screening: Colonoscopy 1965 Pneumococcal Vaccine: 50+ Years (1 of 1 - PCV) 2014 HIV Screening 02/04/2022 Hepatitis C Screening 02/04/2022 Social Influencers of Health Screening 02/04/2022 Hypertension/CHF/CAD Annual BMP Blood Test 02/09/2024 Depression Screening 03/09/2024 COVID-19 Vaccine ( season) 2024 02/07/2022, 03/12/2021, 07/25/2020, Additional history exists Influenza Vaccine (#1) 2024 , 02/07/2022, 01/12/2020, [...] patient's age to complete this topic Insurance [facility] [employer] Care Teams Valet Runner Relationship Specialty Start Date End Date Alysa Blair MD [address] [place] [phone] PCP - General Family Medicine 02/08/24
--- OUTSIDE RECORDS SUMMARY | 2024-12-29 18:47 | XMS_ITS | Encounter Summary ---
Author Organization [employer] Address [address] [place] [address] 7 [place] [address] Care Team Providers Care Product Management Analyst Name Role Phone Alysa Blair MD Primary Care Provider [phone] Shay Méndez PharmD Unavailable [phone] Reason for Visit * Reason Comments Med Refill Encounter Details Date Type Department Care Team (Late st Contact Info) Description 12/03/2022 Refill [facility] [address] [place] [address] [phone] Alysa Blair MD [address] [place] [address] Social History Tobacco Use Types Packs/Day Years [...] Info) Description 02/17/2025 3:00 PM EST Telemedicine [facility] [address] [place] [address] Shay Méndez, PharmD [address] [place] [address] documented as of this encounter Goals Goal [...] documented as of this encounter Care Teams Product Management Analyst Relationship Specialty Start Date End Date Alysa Blair MD [address] [place] [address] PCP - General Family Medicine 02/20/20 Shay Méndez, PharmD [address] [place] [address] Pharmacist Internal Medicine 11/26/22 documented as of this encounter
== END 2024-12-29 15:57 | disposition home or self-care (01) ==
LOC: HO.HOS 14:55
PROVIDERS: PCP Family Medicine; Visit Provider Physician Assistant
DX: M25.521 Pain in right elbow (principal); Z87.39 Personal history of other diseases of the musculoskeletal system and connective tissue
CPT/HCPCS: 99213

== ENCOUNTER → 2024-12-29 14:55 | Outpatient (BNVA) | payer OTHER, SELFPAY | PROVIDERS: PCP Family Medicine; Visit Provider Physician Assistant | DX: M25.521 Pain in right elbow (principal); Z87.39 Personal history of other diseases of the musculoskeletal system and connective tissue | CPT/HCPCS: 99212 ==